=== PATIENT | male | born 1950 | race Caucasian/White ===

== ENCOUNTER 2020-07-30 11:34 | Outpatient (CLI) | payer MEDICARE | END 2020-07-30 11:35 | disposition critical access hospital (66) | LOC: EMS 11:34 | PROVIDERS: ATTEND Surgery | DX: S79.912A Unspecified injury of left hip, initial encounter (principal); W11.XXXA Fall on and from ladder, initial encounter; Y92.008 Other place in unspecified non-institutional (private) residence as the place of occurrence of the external cause | CPT/HCPCS: A0425; A0427 ==

== ENCOUNTER 2020-07-30 11:58 | Inpatient (IN) | payer MEDICARE ==
[2020-07-30] MEDS ORDERED: HYDROmorphone 1 MG/ML CARPUJECT IVP STA (12:29)
--- NOTE | 2020-07-30 12:33 | ED Physician Documentation ---
History of Present Illness - Stated complaint Stated Complaint: FALL FROM LADDER - Chief complaint Chief Complaint: Trauma Ext - History obtained from History obtained from: Patient, EMS - History of Present Illness Timing: Today Pain level max: 10 Pain level now: 9 - Additonal information Additional information: Patient states he was working on a platform suspended in between 2 ladders when he accidentally stepped backwards and fell off landing on a concrete pad on the left hip. Worse with movement, nothing makes it better. No head, neck, back pain. No loss of consciousness. Does not take any blood thinners. Received morphine with EMS. Review of Systems Ten Systems: 10 systems reviewed and negative Constitutional: denies: Fever, Chills Nose: denies: Rhinorrhea / runny nose, Congestion Throat: denies: Oral lesions / sores Cardiac: denies: Chest pain / pressure Respiratory: denies: Cough GI: denies: Nausea, Vomiting, Diarrhea Skin: denies: Rash Musculoskeletal: denies: Neck pain, Back pain Neurologic: denies: Focal weakness, Numbness, Head injury PD PAST MEDICAL HISTORY - Past Medical History Past Medical History: Yes Cardiovascular: Hypertension, High cholesterol Psych: Depression Musculoskeletal: Osteoarthritis - Past Surgical History Past Surgical History: No HEENT: Tonsil/Adenoidectomy - Present Medications Home Medications: Ambulatory Orders Medication Instructions Recorded Confirmed Fluoxetine HCl [Prozac] 40 mg PO DAILY 07/30/20 07/30/20 Gabapentin [Neurontin] 300 mg PO QID 07/30/20 07/30/20 Hydrochlorothiazide 12.5 mg PO DAILY 07/30/20 07/30/20 Lisinopril [Zestril] 40 mg PO DAILY 07/30/20 07/30/20 Tamsulosin [Flomax] 0.4 mg PO DAILY 07/30/20 07/30/20 buPROPion HCL [Bupropion HCl] 75 mg PO BID 07/30/20 07/30/20 - Allergies Allergies/Adverse Reactions: Allergies Allergy/AdvReac Type Severity Reaction Status Date / Time clindamycin Allergy Unknown Verified 07/30/20 12:18 - Social History Does the pt smoke?: No Smoking Status: Never smoker Does the pt drink ETOH?: No Does the pt have substance abuse?: No - Immunizations Immunizations are current?: Yes - POLST Patient has POLST: No PD ED PE NORMAL - Vitals Vital signs reviewed: Yes - General General: Alert and oriented X 3, No acute distress, Well developed/nourished - HEENT HEENT: Atraumatic, PERRL, Moist mucous membranes, Pharynx benign - Neck Neck: Supple, no meningeal sign, No bony TTP - Cardiac Cardiac: RRR, Strong equal pulses - Respiratory Respiratory: No respiratory distress, Clear bilaterally - Abdomen Abdomen: Soft, Non tender, Non distended - Back Back: No spinal TTP (no Step-off or deformity) - Derm Derm: Warm and dry - Extremities Extremities: Other (Normal examination of the bilateral upper extremities and right lower extremity. Limited range of motion of the left hip with external rotation and shortening. 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5 H RBC 4.73 Hgb 14.7 Hct 42.7 MCV 90.3 MCH 31.1 H MCHC 34.4 RDW 13.2 Plt Count 219 MPV 10.0 Neut # (Auto) 9.1 H Lymph # (Auto) 1.3 L [place] # (Auto) 0.8 Eos # (Auto) 0.1 Baso # (Auto) 0.1 Absolute Nucleated RBC 0.00 Nucleated RBC % 0.0 Sodium 137 Potassium 3.1 L Chloride 103 Carbon Dioxide 23 Anion Gap 11.0 BUN 18 Creatinine 1.0 Estimated GFR (MDRD) 74 L Glucose 142 H Calcium 8.8 Total Bilirubin 0.7 AST 25 ALT 24 Alkaline Phosphatase 39 L Total Protein 6.9 Albumin 4.0 Globulin 2.9 Albumin/Globulin Ratio 1.4 Lipase 29 Blood Type A POSITIVE Antibody Screen NEGATIVE - Rads (name of study) L hip xray Radiology: Prelim report reviewed, EMP read contemporaneously, See rad report (Comminuted, moderately displaced fracture of the left femoral neck, including avulsion of the lesser trochanter.) cxr Radiology: Prelim report reviewed, EMP read contemporaneously, See rad report (no acute disease) PD MEDICAL DECISION MAKING - ED course Complexity details: reviewed results, re-evaluated patient, considered differential, d/w patient, d/w beverage sales consultant ED course: 70-year-old male presents the emergency department after a fall today. He sustained a left hip fracture. Discussed the case with orthopedic surgeon, Dr. Donato who will plan to take to the operating room tomorrow. Discussed the case with Dr. France, hospitalist who accepts for admission. This document was made in part using voice recognition software. While efforts are made to proofread this document, sound alike and grammatical errors may occur. Departure - Departure Disposition: [facility] DC/Xfer Clinical Impression: Fracture of left hip Qualifiers: Encounter type: initial encounter Fracture type: closed Qualified Code(s): S72.002A - Fracture of unspecified part of neck of left femur, initial encounter for closed fracture Condition: Good Discharge Date/Time: 07/30/20 15:10
[2020-07-30 12:50] LABS: BASOPHILS # (AUTO) 0.1 10^3/uL (0.0-0.1); BASOPHILS % (AUTO) 0.6 %; EOSINOPHILS # (AUTO) 0.1 10^3/uL (0.0-0.7); EOSINOPHILS % (AUTO) 0.9 %; HGB - HEMOGLOBIN 14.7 g/dL (14.0-18.0); LYMPHOCYTES # (AUTO) 1.3 10^3/uL (1.5-3.5); LYMPHOCYTES % (AUTO) 11.5 %; MEAN CORPUSCULAR HEMOGLOBIN 31.1 pg (27.0-31.0); MEAN CORPUSCULAR HGB CONC 34.4 g/dL (32.0-36.0); MEAN CORPUSCULAR VOLUME 90.3 fL (80.0-94.0); MONOCYTES # (AUTO) 0.8 10^3/uL (0.0-1.0); MONOCYTES % (AUTO) 6.5 %; NEUTROPHILS # (AUTO) 9.1 10^3/uL (1.5-6.6); NEUTROPHILS % (AUTO) 79.5 %; PLT - PLATELET COUNT 219 10^3/uL (130-450); RED BLOOD COUNT 4.73 10^6/uL (4.70-6.10); RED CELL DISTRIBUTION WIDTH 13.2 % (12.0-15.0); WHITE BLOOD COUNT 11.5 x10^3/uL (4.8-10.8)
[2020-07-30 12:59] LABS: ALBUMIN/GLOBULIN RATIO 1.4 (1.0-2.2); BILIRUBIN,TOTAL 0.7 mg/dL (0.2-1.0); CALCIUM 8.8 mg/dL (8.5-10.3); TOTAL PROTEIN 6.9 g/dL (6.7-8.2)
--- NOTE | 2020-07-30 13:05 | XRAY Report ---
PROCEDURE: Hip w/Pelvis 2-3V LT INDICATIONS: fall off ladder, hip pain TECHNIQUE: AP pelvis with lateral view(s) of the left hip(s). COMPARISON: None. FINDINGS: Bones: There is a comminuted, moderately displaced fracture involving the left femoral neck, with avu lsion of the lesser trochanter. No dislocation is seen. Soft tissues: The visualized bowel gas pattern is normal. No suspicious soft tissue calcifications. IMPRESSION: Comminuted, moderately displaced fracture of the left femoral neck, including avulsion o f the lesser trochanter. Reviewed by: Ubaldo Velasquez MD on 07/30/2020 12:04 PM SWETA Approved by: Ubaldo Velasquez MD on 07/30/2020 12:04 PM SWETA Station ID: [id number]
[2020-07-30] MEDS ORDERED: ceFAZolin 2 GM in SODIUM CHLORIDE 0.9% 100ML 100 ML IV ONE (13:13)
--- NOTE | 2020-07-30 13:36 | XRAY Report ---
PROCEDURE: Chest 1 View X-Ray INDICATIONS: chest pain TECHNIQUE: One view of the chest was acquired. COMPARISON: None FINDINGS: Surgical changes and devices: None. Lungs and pleura: On the supine study, no large pneumothorax or large pleural effusions can be seen. No focal infiltrates are detected. Mediastinum: The aorta is prominent and tortuous. The cardiac contours are within normal limits. Bones and chest wall: No suspicious bony lesions. Age-appropriate degenerative changes are seen. Overlying soft tissues appear unremarkable. IMPRESSION: No acute abnormality is seen on this supine portable chest study. Reviewed by: Ubaldo Velasquez MD on 07/30/2020 12:34 PM SWETA Approved by: Ubaldo Velasquez MD on 07/30/2020 12:34 PM SWETA Station ID: [id number]
[2020-07-30] MEDS ORDERED: ONDANSETRON 4 MG/2 ML VIAL IVP PRN (15:21)
[2020-07-30] MEDS ORDERED: ACETAMINOPHEN 325 MG TABLET PO PRN (15:21)
[2020-07-30] MEDS: HYDROmorphone 2 MG/ML VIAL IVP PRN ×3 (15:25→23:12)
--- NOTE | 2020-07-30 15:53 | PHARMACY PROGRESS NOTE ---
- Best Possible Medication History Admit Date and Time: 07/30/20 1441 Processed by: Pharmacy Medication History completed: Yes Patient Interview: Completed Secondary Source(s): Insurance records As the person ultimately responsible for medication therapy, providers are able to order a medication from an existing home medication list in [facility] via the "Reconcile Routine" prior to Confirmation of that medication by product support engineer. Such practice is discouraged except when the physician, in their clinical judgment, deems that a medical need exists for a medication without regard to previous use.
[2020-07-30] MEDS ORDERED: LIDOCAINE 2% URO-JET 5 ML SYRINGE UR ONE (17:15)
[2020-07-30] MEDS: TAMSULOSIN 0.4 MG CAPSULE PO SCH (17:44)
[2020-07-30] MEDS: SODIUM CHLORIDE FLUSH 0.9% 10 ML SYRINGE IVP SCH (17:44)
[2020-07-30] MEDS: GABAPENTIN 300 MG CAPSULE PO SCH ×2 (17:44→21:21)
[2020-07-30] MEDS: SODIUM CHLORIDE FLUSH 0.9% 10 ML SYRINGE IVP PRN ×2 (18:28→21:20)
[2020-07-30] MEDS: lisinopriL 20 MG TABLET PO SCH (18:50)
[2020-07-30] MEDS ORDERED: BUPROPION HCL 75 MG PO SCH (21:00)
[2020-07-30] MEDS ORDERED: SODIUM CHLORIDE 0.9% 500 ML IV PRN (21:08)
[2020-07-30] MEDS: POTASSIUM CHLOR 10 MEQ/100 ML 10 MEQ/100 ML BAG IV SCH ×3 (21:20→23:39)
[2020-07-30] MEDS: HYDROcod/ACETAM 5/325 MG TABLET PO PRN (21:21)
[2020-07-30] MEDS: FAMOTIDINE 20 MG TABLET PO SCH (21:21)
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
[2020-07-31] MEDS ORDERED: ceFAZolin 2 GM in SODIUM CHLORIDE 0.9% 100ML 100 ML IV SCH ×2
[2020-07-31] MEDS: POTASSIUM CHLOR 10 MEQ/100 ML 10 MEQ/100 ML BAG IV SCH (00:24)
[2020-07-31] MEDS: LACTATED RINGERS 1,000 ML IV SCH ×2 (01:27→21:40)
[2020-07-31] MEDS: SODIUM CHLORIDE FLUSH 0.9% 10 ML SYRINGE IVP SCH ×3 (03:06→17:25)
[2020-07-31] MEDS: HYDROmorphone 2 MG/ML VIAL IVP PRN ×5 (03:56→19:54)
[2020-07-31 05:09] LABS: CALCIUM 8.8 mg/dL (8.5-10.3); CREATININE 0.6 mg/dL (0.6-1.2); MAGNESIUM 2.2 mg/dL (1.7-2.8)
[2020-07-31 05:18] LABS: BASOPHILS # (AUTO) 0.1 10^3/uL (0.0-0.1); BASOPHILS % (AUTO) 0.3 %; EOSINOPHILS # (AUTO) 0.1 10^3/uL (0.0-0.7); EOSINOPHILS % (AUTO) 0.4 %; HGB - HEMOGLOBIN 14.3 g/dL (14.0-18.0); LYMPHOCYTES # (AUTO) 1.4 10^3/uL (1.5-3.5); LYMPHOCYTES % (AUTO) 9.4 %; MEAN CORPUSCULAR HEMOGLOBIN 31.2 pg (27.0-31.0); MEAN CORPUSCULAR VOLUME 91.7 fL (80.0-94.0); MEAN PLATELET VOLUME 10.4 fL (7.4-11.4); MONOCYTES # (AUTO) 1.4 10^3/uL (0.0-1.0); MONOCYTES % (AUTO) 9.7 %; NEUTROPHILS # (AUTO) 11.6 10^3/uL (1.5-6.6); NEUTROPHILS % (AUTO) 79.4 %; PLT - PLATELET COUNT 219 10^3/uL (130-450); RED BLOOD COUNT 4.58 10^6/uL (4.70-6.10); RED CELL DISTRIBUTION WIDTH 13.4 % (12.0-15.0); WHITE BLOOD COUNT 14.7 x10^3/uL (4.8-10.8)
[2020-07-31] MEDS: hydrALAZINE INJ 20 MG/ML VIAL IVP PRN (05:53)
[2020-07-31] MEDS: TAMSULOSIN 0.4 MG CAPSULE PO SCH (08:47)
[2020-07-31] MEDS: FLUoxetine 10 MG CAPSULE PO SCH (08:47)
[2020-07-31] MEDS: GABAPENTIN 300 MG CAPSULE PO SCH ×4 (08:48→21:38)
[2020-07-31] MEDS: lisinopriL 20 MG TABLET PO SCH (08:52)
[2020-07-31] MEDS: FAMOTIDINE 20 MG TABLET PO SCH ×2 (08:52→21:25)
[2020-07-31] MEDS ORDERED: lisinopriL 20 MG TABLET PO SCH (09:00)
[2020-07-31] MEDS: BUPROPION HCL 75 MG PO SCH ×2 (09:12→21:30)
--- NOTE | 2020-07-31 09:22 | PROVIDER PROGRESS NOTE ---
Subjective - Prog Note Date Prog Note Date: 07/31/20 Prog Note Time: 09:20 - Subjective Pt reports feeling: Improved, No change (Usual pain. No distal weakn ess/numbness) Objective - Vital Signs/Intake & Output Vital Signs: Vital Signs x48h Pulse BP BP 07/31/20 06:57 68 168/92 H 07/31/20 06:44 74 168/91 H 07/31/20 06:23 168/91 H 07/31/20 06:18 168/91 H 07/31/20 06:12 183/90 H 07/31/20 06:05 191/94 H 07/31/20 05:53 180/92 H 07/31/20 05:25 180/92 H Intake & Output: Intake & Output 07/28/20 07/29/20 07/30/20 07/31/20 23:59 23:59 23:59 23:59 Intake Total 200 1042 Output Total 550 300 Balance -350 742 - Lab Results Fish Bones: 07/31/20 04:35 07/31/20 04:35 Other Labs: Lab Results x24hrs 07/31/20 07/31/20 07/31/20 Range/Units 04:35 04:35 04:35 WBC 14.7 H (4.8-10.8) x10^3/uL RBC 4.58 L (4.70-6.10) 10^6/uL Hgb 14.3 (14.0-18.0) g/dL Hct 42.0 (42.0-52.0) % MCV 91.7 (80.0-94.0) fL MCH 31.2 H (27.0-31.0) pg MCHC 34.0 (32.0-36.0) g/dL RDW 13.4 (12.0-15.0) % Plt Count 219 (130-450) 10^3/uL MPV 10.4 (7.4-11.4) fL Neut # (Auto) 11.6 H (1.5-6.6) 10^3/uL Lymph # (Auto) 1.4 L (1.5-3.5) 10^3/uL [place] # (Auto) 1.4 H (0.0-1.0) 10^3/uL Eos # (Auto) 0.1 (0.0-0.7) 10^3/uL Baso # (Auto) 0.1 (0.0-0.1) 10^3/uL Absolute Nucleated RBC 0.00 x10^3/uL Nucleated RBC % 0.0 /100WBC Sodium 140 (135-145) mmol/L Potassium 3.6 (3.5-5.0) mmol/L Chloride 106 (101-111) mmol/L Carbon Dioxide 24 (21-32) mmol/L Anion Gap 10.0 (6-13) BUN 16 (6-20) mg/dL Creatinine 0.6 (0.6-1.2) mg/dL Estimated GFR (MDRD) 134 (>89) Glucose 128 H (70-100) mg/dL Calcium 8.8 (8.5-10.3) mg/dL Magnesium 2.2 (1.7-2.8) mg/dL Total Bilirubin (0.2-1.0) mg/dL AST (10-42) IU/L ALT (10-60) IU/L Alkaline Phosphatase (42-121) IU/L Total Protein (6.7-8.2) g/dL Albumin (3.2-5.5) g/dL Globulin (2.1-4.2) g/dL Albumin/Globulin Ratio (1.0-2.2) Lipase (22-51) U/L Blood Type Blood Type Recheck A POSITIVE Antibody Screen 07/30/20 07/30/20 07/30/20 Range/Units 13:47 12:40 12:40 WBC 11.5 H (4.8-10.8) x10^3/uL RBC 4.73 (4.70-6.10) 10^6/uL Hgb 14.7 (14.0-18.0) g/dL Hct 42.7 (42.0-52.0) % MCV 90.3 (80.0-94.0) fL MCH 31.1 H (27.0-31.0) pg MCHC 34.4 (32.0-36.0) g/dL RDW 13.2 (12.0-15.0) % Plt Count 219 (130-450) 10^3/uL MPV 10.0 (7.4-11.4) fL Neut # (Auto) 9.1 H (1.5-6.6) 10^3/uL Lymph # (Auto) 1.3 L (1.5-3.5) 10^3/uL [place] # (Auto) 0.8 (0.0-1.0) 10^3/uL Eos # (Auto) 0.1 (0.0-0.7) 10^3/uL Baso # (Auto) 0.1 (0.0-0.1) 10^3/uL Absolute Nucleated RBC 0.00 x10^3/uL Nucleated RBC % 0.0 /100WBC Sodium 137 (135-145) mmol/L Potassium 3.1 L (3.5-5.0) mmol/L Chloride 103 (101-111) mmol/L Carbon Dioxide 23 (21-32) mmol/L Anion Gap 11.0 (6-13) BUN 18 (6-20) mg/dL Creatinine 1.0 (0.6-1.2) mg/dL Estimated GFR (MDRD) 74 L (>89) Glucose 142 H (70-100) mg/dL Calcium 8.8 (8.5-10.3) mg/dL Magnesium (1.7-2.8) mg/dL Total Bilirubin 0.7 (0.2-1.0) mg/dL AST 25 (10-42) IU/L ALT 24 (10-60) IU/L Alkaline Phosphatase 39 L (42-121) IU/L Total Protein 6.9 (6.7-8.2) g/dL Albumin 4.0 (3.2-5.5) g/dL Globulin 2.9 (2.1-4.2) g/dL Albumin/Globulin Ratio 1.4 (1.0-2.2) Lipase 29 (22-51) U/L Blood Type A POSITIVE Blood Type Recheck Antibody Screen NEGATIVE - Diagnostic Imaging Diagnostic Imaging Comments: XR show comminuted left IT hip fracture - Other Results/Comments Other Results/Comments: EXAM: Painful hip ROM. Moves toes well. Sensation intact Good cap filling Assessment/Plan - Problem List (1) Fracture of left hip Impression: Stable PLAN: To OR for surgical fixation of hip fracture. Risk and benefits of surgery explained. Questions answered. Leg marked. Qualifiers: Encounter type: initial encounter Fracture type: closed Qualified Code(s): S72.002A - Fracture of unspecified part of neck of left femur, initial encounter for closed fracture
--- NOTE | 2020-07-31 10:43 | ANESTHESIA ---
Pre-Anesthesia VS, & Labs - Diagnosis left hip fracture - Procedure Left hip nailing Vital Signs: Temp Pulse Resp BP Pulse Ox 36.4 C L 68 16 168/92 H 99 07/31/20 01:15 07/31/20 06:57 07/31/20 01:15 07/31/20 06:57 07/31/20 01:15 Height: 5 ft 9 in Weight (kg): 83.9 kg Body Mass Index: 27.3 BMI Classification: Overweight - NPO >8 hours - Lab Results Current Lab Results: Laboratory Tests 07/31/20 04:35: Sodium 140, Potassium 3.6, Chloride 106, Carbon Dioxide 24, Anion Gap 10.0, BUN 16, Creatinine 0.6, Estimated GFR (MDRD) 134, Glucose 128 H, Calcium 8.8, Magnesium 2.2 07/31/20 04:35: WBC 14.7 H, RBC 4.58 L, Hgb 14.3, Hct 42.0, MCV 91.7, MCH 31.2 H , MCHC 34.0, RDW 13.4, Plt Count 219, MPV 10.4, Neut # (Auto) 11.6 H, Lymph # (Auto) 1.4 L, [place] # (Auto) 1.4 H, Eos # (Auto) 0.1, Baso # (Auto) 0.1, Absolute Nucleated RBC 0.00, Nucleated RBC % 0.0 07/31/20 04:35: Blood Type Recheck A POSITIVE 07/30/20 13:47: Blood Type A POSITIVE, Antibody Screen NEGATIVE 07/30/20 12:40: Sodium 137, Potassium 3.1 L, Chloride 103, Carbon Dioxide 23, Anion Gap 11.0, BUN 18, Creatinine 1.0, Estimated GFR (MDRD) 74 L, Glucose 142 H , Calcium 8.8, Total Bilirubin 0.7, AST 25, ALT 24, Alkaline Phosphatase 39 L, Total Protein 6.9, Albumin 4.0, Globulin 2.9, Albumin/Globulin Ratio 1.4, Lipase 29 07/30/20 12:40: WBC 11.5 H, RBC 4.73, Hgb 14.7, Hct 42.7, MCV 90.3, MCH 31.1 H, MCHC 34.4, RDW 13.2, Plt Count 219, MPV 10.0, Neut # (Auto) 9.1 H, Lymph # (Auto) 1.3 L, [place] # (Auto) 0.8, Eos # (Auto) 0.1, Baso # (Auto) 0.1, Absolute Nucleated RBC 0.00, Nucleated RBC % 0.0 Fish Bones: 07/31/20 04:35 07/31/20 04:35 Home Medications and Allergies Home Medications: Ambulatory Orders Fluoxetine HCl [Prozac] 40 mg PO DAILY 07/30/20 Gabapentin [Neurontin] 300 mg PO QID 07/30/20 Hydrochlorothiazide 12.5 mg PO DAILY 07/30/20 Lisinopril [Zestril] 40 mg PO DAILY 07/30/20 Tamsulosin [Flomax] 0.4 mg PO DAILY 07/30/20 buPROPion HCL [Bupropion HCl] 75 mg PO BID 07/30/20 Active Medications Acetaminophen (Tylenol) 650 mg PO Q4HR PRN PRN Reason: Pain or Fever > 38C (100.4F) Hydrocodone Bitart/Acetaminophen ([place] 5/325) 1 tab PO Q4HR PRN PRN Reason: Pain 5 to 7 Last Admin: 07/30/20 21:21 Dose: 1 tab Documented by: Famotidine (Pepcid) 20 mg PO BID [facility] Last Admin: 07/31/20 08:52 Dose: 20 mg Documented by: Fluoxetine HCl (Prozac) 40 mg PO DAILY [facility] Last Admin: 07/31/20 08:47 Dose: 40 mg Documented by: Gabapentin (Neurontin) 300 mg PO QID [facility] Last Admin: 07/31/20 08:48 Dose: 300 mg Documented by: Hydralazine HCl (Apresoline Inj) 10 mg IVP Q4H PRN PRN Reason: PER PHYSICIAN ORDER Last Admin: 07/31/20 05:53 Dose: 10 mg Documented by: Hydromorphone HCl (Dilaudid (Vial)) 2 mg IVP Q2H PRN PRN Reason: PAIN Last Admin: 07/31/20 10:10 Dose: 2 mg Documented by: Cefazolin Sodium 2 gm/ Sodium (Chloride) 100 mls @ 200 mls/hr IV ONCE [facility] Stop: 07/31/20 23:00 Lactated Ringer's (Lr) 1,000 mls @ 100 mls/hr IV .Q10H [facility] Last Admin: 07/31/20 01:27 Dose: 100 mls/hr Documented by: Sodium Chloride (Normal Saline 0.9%) 500 mls @ 0 mls/hr IV Q24H PRN PRN Reason: TKO RATE Last Admin: 07/30/20 21:21 Dose: 30 mls/hr Documented by: Lisinopril (Zestril) 40 mg PO DAILY [facility] Last Admin: 07/31/20 08:52 Dose: 40 mg Documented by: Patient Own Med ( Bupropion Hcl [ Bupropion Hcl] 75 Mg ) 1 each PO BID [facility] Last Admin: 07/31/20 09:12 Dose: 1 each Documented by: Sodium Chloride (Normal Saline Flush 0.9%) 10 ml IVP PRN PRN PRN Reason: NEEDED PER PROVIDER ORDERS Last Admin: 07/30/20 21:20 Dose: 10 ml Documented by: Sodium Chloride (Normal Saline Flush 0.9%) 10 ml IVP 0100,0900,1700 [facility] Last Admin: 07/31/20 08:07 Dose: 10 ml Documented by: Tamsulosin HCl (Flomax) 0.4 mg PO DAILY [facility] Last Admin: 07/31/20 08:47 Dose: 0.4 mg Documented by: Fluoxetine HCl [Prozac] 40 mg PO DAILY 07/30/20 Gabapentin [Neurontin] 300 mg PO QID 07/30/20 Hydrochlorothiazide 12.5 mg PO DAILY 07/30/20 Lisinopril [Zestril] 40 mg PO DAILY 07/30/20 Tamsulosin [Flomax] 0.4 mg PO DAILY 07/30/20 buPROPion HCL [Bupropion HCl] 75 mg PO BID 07/30/20 Allergies/Adverse Reactions: Allergies Allergy/AdvReac Type Severity Reaction Status Date / Time clindamycin Allergy Unknown Verified 07/30/20 12:18 Anes History & Medical History - Anesthetic History Anesthesia Complications: reports: No previous complications - Medical History Cardiovascular: reports: Hypertension, High cholesterol Pulmonary: reports: None Gastrointestinal: reports: GERD Urinary: reports: Benign prostate hypertrophy Neuro: reports: None Musculoskeletal: reports: Osteoarthritis, Other (post herpactic neuralgia) Endocrine/Autoimmune: reports: None Blood Disorders: reports: None Skin: reports: None Smoking Status: Never smoker Psychosocial: reports: No issues indicated History of Cancer?: No - Surgical History Eyes Ears Nose Throat (EENT): Tonsil/Adenoidectomy, Other (Jaw surgery) Exam General: Alert, Oriented x3, Cooperative, No acute distress Dental: WNL, Other (hole in mandible) Mouth Openin Fingerbreadth Neck Mobility: Normal Mallampati classification: II Thyromental Distance: 4-6 cm Respiratory: Lungs clear, Normal breath sounds, No respiratory distress, No accessory muscle use Cardiovascular: Regular rate, Normal S1, Normal S2, No murmurs Mental/Cognitive Status: Alert/Oriented X3, Normal for patient Plan Anesthesia Type: General, Fascia Iliaca Block (Left) Consent for Procedure(s) Verified and Reviewed: Yes Code Status: Attempt Resuscitation ASA classification: 2-Mild systemic disease Is this case an emergency?: No
[2020-07-31] MEDS ORDERED: ROPIVACAINE 0.5% PF 20 ML AMPULE ONE (11:02)
--- NOTE | 2020-07-31 11:27 | CONSULTATION NOTE ---
DATE OF SERVICE: 07/30/2020 Physician: Adolph Donato MD EMERGENCY DEPARTMENT CONSULTATION NOTE REFERRING PHYSICIAN: Dr. Trip Mandel of the emergency room department. CHIEF COMPLAINT: "I hurt my left side." HISTORY OF PRESENT ILLNESS: Patient is a 70-year-old male who apparently fell about 3 feet off of a ladder platform on the day of his admission, landing on his left side. Noted immediate pain and deformity to the left leg. He was unable to stand or weight bear without pain. Patient denied a loss of consciousness or other injuries. No distal weakness or numbness noted. The patient was taken by ambulance to the emergency room here at [facility] where his ER evaluation, including x-rays, revealed a somewhat comminuted left intertrochanteric hip fracture. No other injuries are noted. Patient had no prior hip fractures. EXAMINATION Vital signs were stable. Patient's left hip showed some minimal bruising present. Had tenderness over the lateral aspect of the left hip. Painful left hip range of motion noted. Patient moves his toes satisfactory. Sensation intact. Good capillary filling noted. X-rays showed a comminuted, angulated left intertrochanteric hip fracture with the lesser trochanter fractured off. ASSESSMENT 1. Closed, angulated left intertrochanteric hip fracture. 2. History of hypertension. PLAN: Patient will be admitted to the hospital. Apparently ate about 2 hours before his admission in the early afternoon on Saturday. We will plan then on proceeding with surgical intervention for surgical fixation of his left hip fracture in the morning. The risks and benefits of surgery were explained. Questions were answered. He is aware of possible complications including anesthesia risks, infection, nerve damage, malunion, nonunion, blood clots, etc. After his questions were answered, he wished to proceed with surgery as indicated. The leg will be marked. Consent signed. TD: 07/30/2020 13:31 Revised 08/03/2020 prieto Orig. signed 07/31/20@1354 [email or web address]
[2020-07-31] MEDS ORDERED: MORPHINE 2 MG/ML CARPUJECT IVP PRN ×2 (12:28→14:00)
[2020-07-31] MEDS ORDERED: ATROPINE ABBOJECT 1 MG/10 ML SYRINGE IVP PRN (12:28)
[2020-07-31] MEDS ORDERED: NALOXONE 0.4 MG/ML VIAL IVP PRN (12:28)
[2020-07-31] MEDS ORDERED: HYDROmorphone 0.5 MG/0.5 ML SYRINGE IVP PRN (12:28)
[2020-07-31] MEDS ORDERED: ACETAMINOPHEN 1,000 MG/100 ML 100 ML IV ONE ×2 (12:28→14:31)
[2020-07-31] MEDS ORDERED: PROMETHAZINE INJ 6.25 MG in SODIUM CHLORIDE 0.9% 50 ML IV PRN (12:29)
[2020-07-31] MEDS ORDERED: LACTATED RINGERS 1,000 ML IV SCH (13:00)
[2020-07-31] MEDS ORDERED: LACTATED RINGERS 1,000 ML IV ONE (13:51)
--- NOTE | 2020-07-31 13:57 | OPERATIVE REPORT ---
Operative Report - General Admit Date: 07/30/20 Procedure Date: 07/31/20 Planned Procedure: Long interTan nailing of left hip fracture Pre-Op Diagnosis: Closed, angulated left hip fracture Procedure Performed: Closed reduction and long interTan nailing of left hip fracture Post Op Diagnosis: Same - Procedure Note Primary Surgeon: Suzanna Donato MD Anesthesia Provider: Janes Mobley CRNA Anesthesia Technique: General ET tube, Regional block IV Fluids (mL): 1,000 Estimated Blood Loss (mL): 200 Complications: None
[2020-07-31] MEDS ORDERED: SODIUM CHLORIDE FLUSH 0.9% 10 ML SYRINGE IVP PRN (14:00)
[2020-07-31] MEDS ORDERED: PROCHLORPERAZINE 10 MG/2 ML VIAL IVP PRN (14:00)
[2020-07-31] MEDS ORDERED: ONDANSETRON 4 MG/2 ML VIAL IVP PRN (14:00)
--- NOTE | 2020-07-31 14:02 | XRAY Report ---
PROCEDURE: OR C-Arm Procedure INDICATIONS: SURGERY TECHNIQUE: Intraoperative AP and lateral views of the femur were acquired. COMPARISON: None. FINDINGS: Postsurgical changes compatible with ORIF of left intertrochanteric/subtrochanteric femur fracture no jordan. Intramedullary marisela with proximal dynamic compression screw and distal interlocking screw noted. There is anatomic alignment of fracture following ORIF. IMPRESSION: Intraoperative images demonstrate expected postsurgical change from ORIF of proximal left femur fract ure. Reviewed by: Adamaris Beal MD, PhD on 07/31/2020 2:01 PM PDT Approved by: Adamaris Beal MD, PhD on 07/31/2020 2:01 PM PDT Station ID: [id number]
[2020-07-31] MEDS: fentaNYL 100 MCG/2 ML VIAL IVP PRN ×2 (14:40→14:47)
[2020-07-31] MEDS ORDERED: fentaNYL 100 MCG/2 ML VIAL ONE (14:44)
--- NOTE | 2020-07-31 14:59 | ANESTHESIA POST OP EVALUATION ---
Anesthesia Post Eval - Post Anesthesia Eval Vitals: Last Vital Signs Temp 36.9 C 07/31/20 13:51 Pulse 86 07/31/20 14:54 Resp 16 07/31/20 14:54 BP 153/92 H 07/31/20 14:54 Pulse Ox 97 07/31/20 14:54 CV Function Including HR & BP: positive: Stable Pain Control: positive: Satisfactory Nausea & Vomiting: positive: Negative Mental Status: positive: Baseline Respiratory Status: Airway Patent Hydration Status: Satisfactory Anesthesia Complications: positive: None
--- NOTE | 2020-07-31 15:19 | OPERATIVE REPORT ---
DATE OF SERVICE: 07/31/2020 Physician: Adolph Donato MD PREOPERATIVE DIAGNOSIS: Closed, angulated left intertrochanteric hip fracture. POSTOPERATIVE DIAGNOSIS: Closed, angulated left intertrochanteric hip fracture. PROCEDURE PERFORMED: Closed reduction and long INTERTAN nailing of left hip fracture. SURGEON: Adolph Donato MD ANESTHESIA: Peripheral nerve block and general anesthetic. DESCRIPTION OF PROCEDURE: Patient was taken to the operating room on the afternoon of 07/31/2020 whe re he was placed under a regional nerve block, which was successful. He was then placed under genera l anesthetic by the nurse weigher production. We then positioned him from his bed onto the fracture table i n supine position. The right lower extremity was then flexed and widely abducted at the hip and held with a well leg powers. We then placed the fractured left lower extremity into axial traction with the leg internally rotated approximately 20 degrees. Fluoroscopic views in AP and lateral projection showed the fracture to be essentially out to length and in good alignment. We then prepped and drap ed, the lateral aspect of the hip down to the knee in the usual fashion for our procedure. Making an oblique skin incision proximal to the tip of the greater trochanter, we dissected down to t he tip of the greater trochanter. This is where we placed a threaded-tip guidewire from the nail set . Fluoroscopic views showed that we were at the tip of the greater trochanter. We then advanced thi s threaded guide pin through the greater trochanter into the proximal femur. Fluoroscopic view showe d this to be in a good position both in AP and lateral projections. We then proceeded to ream the pr oximal femur using the 16 mm channel reamer. At this point, we then removed the guide pin and reamer . We then advanced a ball-tip guide down the prepared proximal femoral channel down the femoral shaf t toward the knee. We then repositioned the channel reamer over our ball-tip guide and proceeded to ream further just beyond the tip of the lesser trochanter with our reamer. Next, we removed the ream er and then proceeded to sequentially ream the femoral canal starting with a 9 mm in-cutting flexible reamer. We advanced in 1 mm increments up to 12 mm. At this point, we started hearing some chatter from the intramedullary reaming. We then went to the 12.5 and finally the 13 mm flexible reamer in preparing the femoral canal. At this point, we then measured the length of our nail. Confirming meaghan t the tip of the ball-tipped guide was in the supracondylar region of the distal femur and that the m easuring device was approximately at the tip of the greater trochanter, we determined that a 42 cm le ngth nail would be utilized. Since we had reamed to 13 mm, an 11.5 mm diameter left-sided INTERTAN n ail with 125-degree angle proximal hole would be utilized. This implant was then folded onto our ins ertion and alignment apparatus. We then proceeded to place this nail in the prepared femoral shaft. The depth of insertion was guided with our fluoroscopic view until the proximal hole of our nail wit h aligned with the central axis of the femoral neck and head. Once this was in proper position, we deangelo richardson made a skin incision over the lateral proximal thigh and inserted the oval drill sleeve through t he distal hole in our alignment jig. This was then advanced to the lateral femoral cortex. Next, we inserted the wright-shaped pin guide in our drill sleeve. We then proceeded to use power to advance a threaded-tip guidewire through our wire guide, advancing this through the proximal femur and femoral neck and femoral head. After minor adjustments, we accepted the position of our guide pin, which wa s nearly central in AP and lateral projections under fluoroscopic views of the femoral neck and head, and the depth had been to within about 2 mm from the subchondral bone of the femoral head. Direct m easuring guide was then utilized and we figured that 115 mm subtrochanteric hip lag screw be utilized . Removing our pin guide out of our sleeve, we then used the cannulated reamer to ream the proximal femur, femoral neck and femoral head to within a few millimeters of the subchondral bone. After the reamer was removed, we then proceeded to place the selected subtrochanteric hip lag screw, inserting this manually. This was advanced until the screw was within about 3 mm of the subchondral bone. We got good bony purchase as we advanced this screw. Using the compression device on our inserted nail, we were able to impact the fracture approximately 2-3 mm. Satisfied with the compression, we then p roceeded to lock the proximal set screw in our nail, advancing it until the screw was tight and then backing off 90 degrees. We then proceeded to remove the insertion device for a hip lag screw, as wel l as the alignment jig from the nail. We then directed our attention distally to put the distal locking screw in place. We first abducted the leg approximately 30 degrees and locked the table. We then repositioned the C-arm fluoroscopic m achine to allow us to get a good lateral of the distal femur. The adjustment of the C-arm was then d one, as well as minor adjustments of the leg position until the static hole in the distal end of our nail was a round shape. Making skin incision overlying this hole, as well as placing the tip of our drill centered over this static hole of our distal nail, we then proceeded to drill the lateral and f emoral and medial femoral portion of the cortex with our drill through the static hole in our nail. We then replaced the drill with the selected 5 mm distal locking screw. The length was determined fr om our direct measurement off of our drill. We ended up using a 45 mm length screw. Manually, we the n proceeded to replace the drill bit with the selected distal locking screw. Fluoroscopic views in A P and lateral projections were obtained until we were satisfied with the bicortical screw being withi n the distal end of our nail at the static locked hole. Once we were satisfied with this, we got johnathan in and permanent x-rays, AP and lateral, both at the distal femur and at the proximal femur/hip area. Finally, we irrigated the wounds out thoroughly with saline. We then closed the wound in layers us ing a buried simple stitch of 0 Vicryl to close the fascia maureen incision, followed by buried simple s titches of 2-0 Vicryl to close the subcutaneous tissues in the proximal 2 incisions. Last, skin stap les used to approximate the skin edges to all 3 wounds. No local anesthetic was injected, as we got adequate peripheral nerve block preoperatively. The patient was then transferred off the fracture ta ble onto his bed and taken to the recovery room in satisfactory condition. ESTIMATED BLOOD LOSS: 200 mL. REPLACEMENT: 1000 mL crystalloid. TOURNIQUET TIME: None. PLAN: The patient will be advanced in physical therapy, weightbearing as tolerated in his lower extr emity walker ambulating. TD: 07/31/2020 14:17
--- NOTE | 2020-07-31 15:35 | PROVIDER PROGRESS NOTE ---
Assessment/Plan - Problem List (1) Fracture of left hip Qualifiers: Encounter type: subsequent encounter Fracture type: closed Assessment/Plan: Patient had successful hip repair with pinning. Continue with pain medications as needed. Will order scheduled Toradol for several doses and prn narcotics Start with PT tomorrow for rehab (2) Oral ulcer Assessment/Plan: Patient made sure to tell me that he cannot have solid or even soft or pured food since he must be mostly on his back and cannot washout his mouth with water to spit it out. We will order a full liquid diet. Tomorrow when he is OOB, will probably advance to a soft diet so that he can do his oral hygiene/liquid washes after every meal. (3) HTN (hypertension) Assessment/Plan: His home dose of lisinopril has been resumed. IV hydralazine has been ordered PRN for hypertensive urgency. A low-salt diet will be ordered (4) Prolonged QT syndrome Assessment/Plan: He reports this was diagnosed after he had several syncopes. Avoid QT prolonging medication (5) BPH (benign prostatic hyperplasia) Assessment/Plan: Today he had urinary retention, could not urinate supine in bed. Larkin was placed because of the hip fracture and immobility. His BPH meds from home have also been resumed (6) Chronic pain Assessment/Plan: Meds such as gabapentin have all been resumed (7) Anxiety Assessment/Plan: His anxiolytics have all been continued here (8) Hypokalemia Assessment/Plan: This was likely due to use of HCTZ. It was replaced. Follow BMP daily - Current Meds Current Meds: Current Medications Generic Name Dose Route Start Last Admin Trade Name Freq PRN Reason Stop Dose Admin Hydrocodone Bitart/Acetaminophen 1 tab 07/30/20 15:21 07/30/20 21:21 [place] 5/325 PO 1 tab Q4HR PRN Administration Pain 5 to 7 Famotidine 20 mg 07/30/20 21:00 07/31/20 08:52 Pepcid PO 20 mg BID EVIE Administration Fluoxetine HCl 40 mg 07/31/20 09:00 07/31/20 08:47 Prozac PO 40 mg DAILY EVIE Administration Gabapentin 300 mg 07/30/20 18:00 07/31/20 08:48 Neurontin PO 300 mg QID EVIE Administration Hydralazine HCl 10 mg 07/31/20 05:27 07/31/20 05:53 Apresoline Inj IVP 10 mg Q4H PRN Administration PER PHYSICIAN ORDER Hydromorphone HCl 2 mg 07/30/20 15:19 07/31/20 10:10 Dilaudid (Vial) IVP 2 mg Q2H PRN Administration PAIN Lactated Ringer's 1,000 mls @ 100 mls/hr 07/31/20 00:01 07/31/20 11:30 Lr IV Infused .Q10H EVIE Infusion Lisinopril 40 mg 07/30/20 18:26 07/31/20 08:52 Zestril PO 40 mg DAILY EVIE Administration Patient Own Med ( 1 each 07/31/20 06:58 07/31/20 09:12 Bupropion Hcl [ PO 1 each Bupropion Hcl] 75 Mg BID EVIE Administration ) Tamsulosin HCl 0.4 mg 07/30/20 17:13 07/31/20 08:47 Flomax PO 0.4 mg DAILY EVIE Administration - Lab Result Fish Bone Diagrams: 07/31/20 04:35 07/31/20 04:35 - Additional Planning My Orders: My Active Orders 07/30/20 15:19 HYDROmorphone (VIAL) [Dilaudid (Vial)] 2 mg IVP Q2H PRN 07/30/20 15:21 Activity Orders [RC] Q2HR IO [RC] IOSHIFT Initiate Bowel Care Protocol [RC] .protocol Initiate Personal Care Protoco [RC] .protocol Oxygen Therapy [RC] Routine Vital Signs [RC] 0800,1600,0000 HYDROcod/ACETAM 5/325 [[place] 5/325] 1 tab PO Q4HR PRN Code Status [OTHERS] Routine Condition of Patient [OTHERS] Routine DVT Prophylaxis [OTHERS] Routine 07/30/20 15:23 IV Insert [RC] .ONCE SCDs [RC] QSHIFT 07/30/20 15:26 Initiate Line Care Protocol [RC] [facility] Orthopedics Consult [CONS] Routine 07/30/20 17:13 Tamsulosin [Flomax] 0.4 mg PO DAILY 07/30/20 17:15 Larkin Insertion [RC] QSHIFT 07/30/20 18:00 Gabapentin [Neurontin] 300 mg PO QID 07/30/20 18:26 lisinopriL [Zestril] 40 mg PO DAILY 07/30/20 21:00 Famotidine [Pepcid] 20 mg PO BID 07/31/20 00:01 Lactated Ringers [Lr] 1,000 ml IV 100 mls/hr 07/31/20 06:58 Patient Own Med [Patient Own Medication] 1 each PO BID 07/31/20 09:00 FLUoxetine [PROzac] 40 mg PO DAILY 08/01/20 05:00 BMP - BASIC METABOLIC PANEL [CHEM] DAILYLAB CBC - COMP BLD CT W/AUTO DIFF [HEME] DAILYLAB 08/02/20 05:00 BMP - BASIC METABOLIC PANEL [CHEM] DAILYLAB CBC - COMP BLD CT W/AUTO DIFF [HEME] DAILYLAB Subjective - Subjective Patient Reports: Pain (He got on a "block" by DIRECTOR APPOINTMENT but he still has a lot of breakthrough pain, has needed Vicodin and that is not controlling pain, Dilaudid has just been given) Objective Vital Signs: Vital Signs - 24 hr 07/30/20 07/31/20 07/31/20 15:57 01:15 05:25 Temperature 36.4 C L 36.4 C L Heart Rate Heart Rate [ 84 62 Brachial] Respiratory 18 16 Rate Blood Pressure Blood Pressure 150/96 H 171/96 H 180/92 H [Left Brachial artery] O2 Saturation 99 99 07/31/20 07/31/20 07/31/20 05:53 06:05 06:12 Temperature Heart Rate Heart Rate [ Brachial] Respiratory Rate Blood Pressure 180/92 H Blood Pressure 191/94 H 183/90 H [Left Brachial artery] O2 Saturation 07/31/20 07/31/20 07/31/20 06:18 06:23 06:44 Temperature Heart Rate Heart Rate [ 74 Brachial] Respiratory Rate Blood Pressure 168/91 H Blood Pressure 168/91 H 168/91 H [Left Brachial artery] O2 Saturation 07/31/20 07/31/20 07/31/20 06:57 13:51 13:55 Temperature 36.9 C Heart Rate 99 99 Heart Rate [ 68 Brachial] Respiratory 16 15 Rate Blood Pressure 158/89 H 170/96 H Blood Pressure 168/92 H [Left Brachial artery] O2 Saturation 100 99 07/31/20 07/31/20 07/31/20 14:00 14:05 14:10 Temperature Heart Rate 91 92 92 Heart Rate [ Brachial] Respiratory 14 13 10 L Rate Blood Pressure 158/93 H 158/92 H 155/93 H Blood Pressure [Left Brachial artery] O2 Saturation 98 98 98 07/31/20 07/31/20 07/31/20 14:14 14:20 14:25 Temperature Heart Rate 95 88 82 Heart Rate [ Brachial] Respiratory 16 10 L 13 Rate Blood Pressure 143/95 H 137/100 H 149/99 H Blood Pressure [Left Brachial artery] O2 Saturation 96 96 97 07/31/20 07/31/20 07/31/20 14:30 14:35 14:40 Temperature Heart Rate 74 95 76 Heart Rate [ Brachial] Respiratory 11 L 12 12 Rate Blood Pressure 159/99 H 159/89 H 145/97 H Blood Pressure [Left Brachial artery] O2 Saturation 97 94 97 07/31/20 07/31/20 07/31/20 14:44 14:50 14:54 Temperature Heart Rate 80 76 86 Heart Rate [ Brachial] Respiratory 17 13 16 Rate Blood Pressure 152/96 H 158/87 H 153/92 H Blood Pressure [Left Brachial artery] O2 Saturation 97 97 97 Oxygen O2 Source Room air I&O (Last 24 Hrs): Intake and Output Totals x24h 07/29/20 07/30/20 07/31/20 23:59 23:59 23:59 Intake Total 200 2042 Output Total 550 300 Balance -350 1742 General: Alert, Oriented x3 HEENT: Mucous membr. moist/pink Neck: Supple Neuro: Alert, Non Focal Cardiovascular: Regular rate Respiratory: No respiratory distress Abdomen: Soft Extremities: No edema - Results Results: Laboratory Results WBC 14.7 x10^3/uL (4.8-10.8) H 07/31/20 04:35 RBC 4.58 10^6/uL (4.70-6.10) L 07/31/20 04:35 Hgb 14.3 g/dL (14.0-18.0) 07/31/20 04:35 Hct 42.0 % (42.0-52.0) 07/31/20 04:35 MCV 91.7 fL (80.0-94.0) 07/31/20 04:35 MCH 31.2 pg (27.0-31.0) H 07/31/20 04:35 MCHC 34.0 g/dL (32.0-36.0) 07/31/20 04:35 RDW 13.4 % (12.0-15.0) 07/31/20 04:35 Plt Count 219 10^3/uL (130-450) 07/31/20 04:35 MPV 10.4 fL (7.4-11.4) 07/31/20 04:35 Neut # (Auto) 11.6 10^3/uL (1.5-6.6) H 07/31/20 04:35 Lymph # (Auto) 1.4 10^3/uL (1.5-3.5) L 07/31/20 04:35 [place] # (Auto) 1.4 10^3/uL (0.0-1.0) H 07/31/20 04:35 Eos # (Auto) 0.1 10^3/uL (0.0-0.7) 07/31/20 04:35 Baso # (Auto) 0.1 10^3/uL (0.0-0.1) 07/31/20 04:35 Absolute Nucleated RBC 0.00 x10^3/uL 07/31/20 04:35 Nucleated RBC % 0.0 /100WBC 07/31/20 04:35 Sodium 140 mmol/L (135-145) 07/31/20 04:35 Potassium 3.6 mmol/L (3.5-5.0) 07/31/20 04:35 Chloride 106 mmol/L (101-111) 07/31/20 04:35 Carbon Dioxide 24 mmol/L (21-32) 07/31/20 04:35 Anion Gap 10.0 (6-13) 07/31/20 04:35 BUN 16 mg/dL (6-20) 07/31/20 04:35 Creatinine 0.6 mg/dL (0.6-1.2) 07/31/20 04:35 Estimated GFR (MDRD) 134 (>89) 07/31/20 04:35 Glucose 128 mg/dL (70-100) H 07/31/20 04:35 Calcium 8.8 mg/dL (8.5-10.3) 07/31/20 04:35 Magnesium 2.2 mg/dL (1.7-2.8) 07/31/20 04:35 Total Bilirubin 0.7 mg/dL (0.2-1.0) 07/30/20 12:40 AST 25 IU/L (10-42) 07/30/20 12:40 ALT 24 IU/L (10-60) 07/30/20 12:40 Alkaline Phosphatase 39 IU/L (42-121) L 07/30/20 12:40 Total Protein 6.9 g/dL (6.7-8.2) 07/30/20 12:40 Albumin 4.0 g/dL (3.2-5.5) 07/30/20 12:40 Globulin 2.9 g/dL (2.1-4.2) 07/30/20 12:40 Albumin/Globulin Ratio 1.4 (1.0-2.2) 07/30/20 12:40 Lipase 29 U/L (22-51) 07/30/20 12:40 Blood Type A POSITIVE 07/30/20 13:47 Blood Type Recheck A POSITIVE 07/31/20 04:35 Antibody Screen NEGATIVE 07/30/20 13:47
[2020-07-31] MEDS: HYDROcod/ACETAM 5/325 MG TABLET PO PRN ×2 (17:20→21:25)
[2020-07-31] MEDS: KETOROLAC 30 MG/ML VIAL IVP SCH ×2 (17:21→18:12)
[2020-07-31] MEDS: ASPIRIN 325 MG TABLET PO SCH (17:21)
[2020-07-31] MEDS: ceFAZolin 2 GM in SODIUM CHLORIDE 0.9% 100ML 100 ML IV SCH ×2 (17:21→21:27)
[2020-07-31] MEDS: SODIUM CHLORIDE 0.9% 1,000 ML IV SCH (17:23)
[2020-08-01] MEDS: KETOROLAC 30 MG/ML VIAL IVP SCH ×4 (00:03→18:49)
[2020-08-01] MEDS: HYDROmorphone 2 MG/ML VIAL IVP PRN ×4 (00:08→07:51)
[2020-08-01] MEDS: HYDROcod/ACETAM 5/325 MG TABLET PO PRN ×4 (02:04→21:31)
[2020-08-01] MEDS: SODIUM CHLORIDE FLUSH 0.9% 10 ML SYRINGE IVP SCH ×3 (02:33→16:50)
[2020-08-01] MEDS: SODIUM CHLORIDE 0.9% 1,000 ML IV SCH ×3 (03:11→21:34)
[2020-08-01 05:48] LABS: BASOPHILS % (AUTO) 0.3 %; EOSINOPHILS % (AUTO) 0.1 %; HGB - HEMOGLOBIN 11.2 g/dL (14.0-18.0); LYMPHOCYTES # (AUTO) 1.7 10^3/uL (1.5-3.5); LYMPHOCYTES % (AUTO) 11.1 %; MEAN CORPUSCULAR HEMOGLOBIN 30.7 pg (27.0-31.0); MEAN CORPUSCULAR HGB CONC 33.3 g/dL (32.0-36.0); MEAN CORPUSCULAR VOLUME 92.1 fL (80.0-94.0); MONOCYTES # (AUTO) 1.7 10^3/uL (0.0-1.0); MONOCYTES % (AUTO) 10.7 %; PLT - PLATELET COUNT 198 10^3/uL (130-450); RED BLOOD COUNT 3.65 10^6/uL (4.70-6.10); RED CELL DISTRIBUTION WIDTH 13.4 % (12.0-15.0); WHITE BLOOD COUNT 15.6 x10^3/uL (4.8-10.8)
[2020-08-01 05:56] LABS: CALCIUM 8.2 mg/dL (8.5-10.3); CREATININE 0.7 mg/dL (0.6-1.2)
[2020-08-01] MEDS: GABAPENTIN 300 MG CAPSULE PO SCH ×3 (06:03→17:12)
[2020-08-01] MEDS: ASPIRIN 325 MG TABLET PO SCH ×2 (07:48→17:12)
[2020-08-01] MEDS: FLUoxetine 10 MG CAPSULE PO SCH (08:44)
[2020-08-01] MEDS: lisinopriL 20 MG TABLET PO SCH (08:45)
[2020-08-01] MEDS: TAMSULOSIN 0.4 MG CAPSULE PO SCH (08:45)
[2020-08-01] MEDS: FAMOTIDINE 20 MG TABLET PO SCH ×2 (08:45→21:31)
[2020-08-01] MEDS: BUPROPION HCL 75 MG PO SCH ×2 (08:46→21:31)
[2020-08-01] MEDS: hydrALAZINE INJ 20 MG/ML VIAL IVP PRN ×2 (09:29→21:28)
--- NOTE | 2020-08-01 12:18 | PROVIDER PROGRESS NOTE ---
Assessment/Plan - Problem List (1) Fracture of left hip Qualifiers: Encounter type: subsequent encounter Fracture type: closed Assessment/Plan: He had successful hip surgery with pinning done yesterday. Today is POD #1 Toradol was ordered on a schedule to help with pain control. The patient had reiteration for myself and his nurse that he can ask for more medications to control pain, he however wants to try to avoid narcotics. PT and OT to start today. (2) Oral ulcer Assessment/Plan: The patient was put on full liquid diet because he does not want to take solids which could get stuck in his oral ulcer,a nd since he needs to be able to flush the oral ulcer area, with head position down, after every meal, he wants this diet. Depending on how much he can ambulate and move and adjust his head position for flushing his oral ulcer, will depend on how we advance his diet to take solids. (3) Leukocytosis Assessment/Plan: White blood count is rising 11>> 14>> 15 today. There is no fever. He does have flushed cheeks however. He underwent COVID nasal swab testing (because of potential exposure in the [facility] OR, from a COVID-positive staff member). His COVID test is currently negative. Will send urine for U/A and culture and obtain chest x-ray, as he may have postop atelectasis or pneumonia. If there is a fever will draw blood cultures. Would start empiric antibiotics if urine or chest x-ray results show source for the elevated white blood count. (4) HTN (hypertension) Assessment/Plan: BP is poorly controlled. His HCTZ was stopped, since he is only getting a full liquid diet. His pain is not well managed, adding to the hypertension. PRN IV hydralazine has been ordered He is on his oral lisinopril 40 mg daily. Will add carvedilol 6.25 mg po bid for blood pressure control since HR is 90's. I explained to him that his blood pressure of 180 and 190 systolic, will not have a significant improvement with his home dose of HCTZ 12.5 mg started, and HCTZ may add to dehydration since he is only taking minimal diet and liquids.. (5) Prolonged QT syndrome Assessment/Plan: Is a history of several syncopal episodes, was diagnosed with prolonged QT syndrome. Continuous telemetry. Avoid QT-prolonging agents, like Zofran. (6) BPH (benign prostatic hyperplasia) Assessment/Plan: He is on his meds for BPH. He requested a coud catheter when he had urinary retention preoperatively. I saw how uncomfortable he was from urinary retention pre-op, when he was supine. The plan was for the urinary catheter to be discontinued post-op today, but the patient requests it be left in. Will schedule discontinue tomorrow. 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 (8) Anxiety Assessment/Plan: He is on both of his anxiolytics. The OT and PT and his RN reported that he is tensing muscles when BP measured and is hesitant to start rehab due to anxiety over the new surgical site "breaking". I will add Ativan 0.5 mg prn and I strongly suggested to him and his in room, that he take it. (9) Hypokalemia Assessment/Plan: Resolved with replacement. It may have been from HCTZ use before this admission. Follow BMP - Current Meds Current Meds: Current Medications Generic Name Dose Route Start Last Admin Trade Name Freq PRN Reason Stop Dose Admin Hydrocodone Bitart/Acetaminophen 1 tab 07/30/20 15:21 08/01/20 02:04 [place] 5/325 PO 1 tab Q4HR PRN Administration Pain 5 to 7 Aspirin 325 mg 07/31/20 17:00 08/01/20 07:48 Fany PO 325 mg BIDWM EVIE Administration Famotidine 20 mg 07/30/20 21:00 08/01/20 08:45 Pepcid PO 20 mg BID EVIE Administration Fluoxetine HCl 40 mg 07/31/20 09:00 08/01/20 08:44 Prozac PO 40 mg DAILY EVIE Administration Gabapentin 300 mg 08/01/20 06:00 08/01/20 11:54 Neurontin PO 300 mg Q6HR EVIE Administration Hydralazine HCl 10 mg 07/31/20 05:27 08/01/20 09:29 Apresoline Inj IVP 10 mg Q4H PRN Administration PER PHYSICIAN ORDER Hydromorphone HCl 2 mg 07/30/20 15:19 08/01/20 07:51 Dilaudid (Vial) IVP 2 mg Q2H PRN Administration PAIN Sodium Chloride 1,000 mls @ 100 mls/hr 07/31/20 14:00 08/01/20 03:11 Normal Saline 0.9% IV 100 mls/hr .Q10H EVIE Administration Ketorolac Tromethamine 30 mg 07/31/20 17:00 08/01/20 11:54 Toradol Inj (30mg) IVP 08/05/20 16:59 30 mg Q6HR EVIE Administration Lisinopril 40 mg 07/30/20 18:26 08/01/20 08:45 Zestril PO 40 mg DAILY EVIE Administration Patient Own Med ( 1 each 07/31/20 06:58 08/01/20 08:46 Bupropion Hcl [ PO 1 each Bupropion Hcl] 75 Mg BID EVIE Administration ) Prochlorperazine Edisylate 10 mg 07/31/20 14:00 07/31/20 19:51 Compazine Inj IVP 10 mg Q6HR PRN Administration Nausea / Vomiting Sodium Chloride 10 ml 07/31/20 17:00 08/01/20 08:53 Normal Saline Flush 0.9% IVP Not Given 0100,0900,1700 EVIE Sodium Chloride 10 ml 07/31/20 14:00 07/31/20 19:55 Normal Saline Flush 0.9% IVP 20 ml PRN PRN Administration NEEDED PER PROVIDER ORDERS Tamsulosin HCl 0.4 mg 07/30/20 17:13 08/01/20 08:45 Flomax PO 0.4 mg DAILY EVIE Administration - Lab Result Fish Bone Diagrams: 08/01/20 05:40 08/01/20 05:40 - Additional Planning My Orders: My Active Orders 07/31/20 Dinner DIET [Full Liquid Diet] [DIET] 07/31/20 17:00 Ketorolac Inj (30Mg) [Toradol Inj (30Mg)] 30 mg IVP Q6HR 08/01/20 06:00 Gabapentin [Neurontin] 300 mg PO Q6HR 08/01/20 13:00 carvediloL [Coreg] 3.125 mg PO BID 08/02/20 05:00 BMP - BASIC METABOLIC PANEL [CHEM] DAILYLAB CBC - COMP BLD CT W/AUTO DIFF [HEME] DAILYLAB Subjective - Subjective Patient Reports: Pain (States "I have no pain but I have discomfort". Then he rates his discomfort at 8/10.) Objective Vital Signs: Vital Signs - 24 hr 07/31/20 07/31/20 07/31/20 13:51 13:55 14:00 Temperature 36.9 C Heart Rate 99 99 91 Heart Rate [ Brachial] Respiratory 16 15 14 Rate Blood Pressure 158/89 H 170/96 H 158/93 H Blood Pressure [Left Brachial artery] Blood Pressure [Right Brachial artery] O2 Saturation 100 99 98 07/31/20 07/31/20 07/31/20 14:05 14:10 14:14 Temperature Heart Rate 92 92 95 Heart Rate [ Brachial] Respiratory 13 10 L 16 Rate Blood Pressure 158/92 H 155/93 H 143/95 H Blood Pressure [Left Brachial artery] Blood Pressure [Right Brachial artery] O2 Saturation 98 98 96 07/31/20 07/31/20 07/31/20 14:20 14:25 14:30 Temperature Heart Rate 88 82 74 Heart Rate [ Brachial] Respiratory 10 L 13 11 L Rate Blood Pressure 137/100 H 149/99 H 159/99 H Blood Pressure [Left Brachial artery] Blood Pressure [Right Brachial artery] O2 Saturation 96 97 97 07/31/20 07/31/20 07/31/20 14:35 14:40 14:44 Temperature Heart Rate 95 76 80 Heart Rate [ Brachial] Respiratory 12 12 17 Rate Blood Pressure 159/89 H 145/97 H 152/96 H Blood Pressure [Left Brachial artery] Blood Pressure [Right Brachial artery] O2 Saturation 94 97 97 07/31/20 07/31/20 07/31/20 14:50 14:54 15:30 Temperature 36.5 C Heart Rate 76 86 Heart Rate [ 85 Brachial] Respiratory 13 16 16 Rate Blood Pressure 158/87 H 153/92 H Blood Pressure 151/92 H [Left Brachial artery] Blood Pressure [Right Brachial artery] O2 Saturation 97 97 100 07/31/20 07/31/20 07/31/20 16:30 20:13 21:00 Temperature 36.7 C 36.6 C 37.1 C Heart Rate Heart Rate [ 76 73 94 Brachial] Respiratory 16 16 18 Rate Blood Pressure Blood Pressure 161/91 H 135/85 H 156/71 H [Left Brachial artery] Blood Pressure [Right Brachial artery] O2 Saturation 99 100 95 08/01/20 08/01/20 08/01/20 00:00 06:59 08:25 Temperature 36.7 C 37.2 C 36.8 C Heart Rate Heart Rate [ 76 83 80 Brachial] Respiratory 17 16 20 Rate Blood Pressure Blood Pressure 157/91 H 178/102 H 192/100 H [Left Brachial artery] Blood Pressure [Right Brachial artery] O2 Saturation 100 97 94 08/01/20 08/01/20 08/01/20 08:44 09:25 09:26 Temperature Heart Rate Heart Rate [ 72 74 Brachial] Respiratory Rate Blood Pressure Blood Pressure 177/83 H 184/92 H [Left Brachial artery] Blood Pressure 197/92 H 193/91 H [Right Brachial artery] O2 Saturation 08/01/20 08/01/20 08/01/20 09:30 09:35 09:40 Temperature Heart Rate Heart Rate [ 74 79 86 Brachial] Respiratory Rate Blood Pressure Blood Pressure 171/84 H 156/77 H [Left Brachial artery] Blood Pressure 175/90 H [Right Brachial artery] O2 Saturation 08/01/20 08/01/20 08/01/20 09:59 10:06 10:43 Temperature 36.8 C Heart Rate 87 Heart Rate [ 87 Brachial] Respiratory 20 Rate Blood Pressure 186/87 H Blood Pressure 181/86 H [Left Brachial artery] Blood Pressure [Right Brachial artery] O2 Saturation 94 Oxygen O2 Source Room air I&O (Last 24 Hrs): Intake and Output Totals x24h 07/30/20 07/31/20 08/01/20 23:59 23:59 23:59 Intake Total 200 3531 980 Output Total 550 650 250 Balance -350 2881 730 General: Alert, Oriented x3 HEENT: Mucous membr. moist/pink, Other (Cheeks are flushed) Neck: Supple Neuro: Alert, Non Focal Cardiovascular: Regular rate Respiratory: No respiratory distress Extremities: No edema - Results Results: Laboratory Results WBC 15.6 x10^3/uL (4.8-10.8) H 08/01/20 05:40 RBC 3.65 10^6/uL (4.70-6.10) L 08/01/20 05:40 Hgb 11.2 g/dL (14.0-18.0) L 08/01/20 05:40 Hct 33.6 % (42.0-52.0) L 08/01/20 05:40 MCV 92.1 fL (80.0-94.0) 08/01/20 05:40 MCH 30.7 pg (27.0-31.0) 08/01/20 05:40 MCHC 33.3 g/dL (32.0-36.0) 08/01/20 05:40 RDW 13.4 % (12.0-15.0) 08/01/20 05:40 Plt Count 198 10^3/uL (130-450) 08/01/20 05:40 MPV 10.0 fL (7.4-11.4) 08/01/20 05:40 Neut # (Auto) 12.0 10^3/uL (1.5-6.6) H 08/01/20 05:40 Lymph # (Auto) 1.7 10^3/uL (1.5-3.5) 08/01/20 05:40 [place] # (Auto) 1.7 10^3/uL (0.0-1.0) H 08/01/20 05:40 Eos # (Auto) 0.0 10^3/uL (0.0-0.7) 08/01/20 05:40 Baso # (Auto) 0.0 10^3/uL (0.0-0.1) 08/01/20 05:40 Absolute Nucleated RBC 0.00 x10^3/uL 08/01/20 05:40 Nucleated RBC % 0.0 /100WBC 08/01/20 05:40 Sodium 139 mmol/L (135-145) 08/01/20 05:40 Potassium 3.5 mmol/L (3.5-5.0) 08/01/20 05:40 Chloride 105 mmol/L (101-111) 08/01/20 05:40 Carbon Dioxide 22 mmol/L (21-32) 08/01/20 05:40 Anion Gap 12.0 (6-13) 08/01/20 05:40 BUN 19 mg/dL (6-20) 08/01/20 05:40 Creatinine 0.7 mg/dL (0.6-1.2) 08/01/20 05:40 Estimated GFR (MDRD) 112 (>89) 08/01/20 05:40 Glucose 124 mg/dL (70-100) H 08/01/20 05:40 Calcium 8.2 mg/dL (8.5-10.3) L 08/01/20 05:40 Magnesium 2.2 mg/dL (1.7-2.8) 07/31/20 04:35 Total Bilirubin 0.7 mg/dL (0.2-1.0) 07/30/20 12:40 AST 25 IU/L (10-42) 07/30/20 12:40 ALT 24 IU/L (10-60) 07/30/20 12:40 Alkaline Phosphatase 39 IU/L (42-121) L 07/30/20 12:40 Total Protein 6.9 g/dL (6.7-8.2) 07/30/20 12:40 Albumin 4.0 g/dL (3.2-5.5) 07/30/20 12:40 Globulin 2.9 g/dL (2.1-4.2) 07/30/20 12:40 Albumin/Globulin Ratio 1.4 (1.0-2.2) 07/30/20 12:40 Lipase 29 U/L (22-51) 07/30/20 12:40 Coronavirus (PCR) NEGATIVE 07/30/20 13:27 Blood Type A POSITIVE 07/30/20 13:47 Blood Type Recheck A POSITIVE 07/31/20 04:35 Antibody Screen NEGATIVE 07/30/20 13:47
--- NOTE | 2020-08-01 12:32 | PROVIDER PROGRESS NOTE ---
Subjective - Prog Note Date Prog Note Date: 08/01/20 Prog Note Time: 12:30 - Subjective Pt reports feeling: Improved (Some generalized body aches. Less hip pain) Objective - Vital Signs/Intake & Output Vital Signs: Vital Signs x48h Temp Pulse Pulse Resp BP BP BP 08/01/20 11:50 85 194/97 H 08/01/20 11:45 37.0 C 92 22 208/96 H 08/01/20 10:43 36.8 C 87 20 08/01/20 10:06 87 181/86 H 08/01/20 09:59 186/87 H 08/01/20 09:40 86 156/77 H 08/01/20 09:35 79 171/84 H 08/01/20 09:30 74 175/90 H 08/01/20 09:26 184/92 H 193/91 H 08/01/20 09:25 74 197/92 H 08/01/20 08:44 72 177/83 H 08/01/20 08:25 36.8 C 80 20 192/100 H 08/01/20 06:59 37.2 C 83 16 178/102 H Pulse Ox 08/01/20 11:50 08/01/20 11:45 95 08/01/20 10:43 94 08/01/20 10:06 08/01/20 09:59 08/01/20 09:40 08/01/20 09:35 08/01/20 09:30 08/01/20 09:26 08/01/20 09:25 08/01/20 08:44 08/01/20 08:25 94 08/01/20 06:59 97 Intake & Output: Intake & Output 07/29/20 07/30/20 07/31/20 08/01/20 23:59 23:59 23:59 23:59 Intake Total 200 3531 980 Output Total 550 650 250 Balance -350 2881 730 - Lab Results Fish Bones: 08/01/20 05:40 08/01/20 05:40 Other Labs: Lab Results x24hrs 08/01/20 08/01/20 07/30/20 Range/Units 05:40 05:40 13:27 WBC 15.6 H (4.8-10.8) x10^3/uL RBC 3.65 L (4.70-6.10) 10^6/uL Hgb 11.2 L (14.0-18.0) g/dL Hct 33.6 L (42.0-52.0) % MCV 92.1 (80.0-94.0) fL MCH 30.7 (27.0-31.0) pg MCHC 33.3 (32.0-36.0) g/dL RDW 13.4 (12.0-15.0) % Plt Count 198 (130-450) 10^3/uL MPV 10.0 (7.4-11.4) fL Neut # (Auto) 12.0 H (1.5-6.6) 10^3/uL Lymph # (Auto) 1.7 (1.5-3.5) 10^3/uL [place] # (Auto) 1.7 H (0.0-1.0) 10^3/uL Eos # (Auto) 0.0 (0.0-0.7) 10^3/uL Baso # (Auto) 0.0 (0.0-0.1) 10^3/uL Absolute Nucleated RBC 0.00 x10^3/uL Nucleated RBC % 0.0 /100WBC Sodium 139 (135-145) mmol/L Potassium 3.5 (3.5-5.0) mmol/L Chloride 105 (101-111) mmol/L Carbon Dioxide 22 (21-32) mmol/L Anion Gap 12.0 (6-13) BUN 19 (6-20) mg/dL Creatinine 0.7 (0.6-1.2) mg/dL Estimated GFR (MDRD) 112 (>89) Glucose 124 H (70-100) mg/dL Calcium 8.2 L (8.5-10.3) mg/dL Coronavirus (PCR) NEGATIVE - Other Results/Comments Other Results/Comments: EXAM: Dressing intact. Moves toes well. Sensation intact..Good cap filling. Some pain with hip motion Assessment/Plan - Problem List (1) Fracture of left hip Impression: Satis post op PLAN: Mobilize as tolerated. Qualifiers: Encounter type: subsequent encounter Fracture type: closed
[2020-08-01] MEDS ORDERED: carvediloL 3.125 MG TABLET PO SCH (13:00)
--- NOTE | 2020-08-01 13:05 | XRAY Report ---
PROCEDURE: Chest 1 View X-Ray INDICATIONS: Post-op elevated WBC TECHNIQUE: One view of the chest was acquired. COMPARISON: 07/30/2020 FINDINGS: Surgical changes and devices: None. Lungs and pleura: No pleural effusions or pneumothorax. Lungs are clear. Mediastinum: Mildly tortuous thoracic aorta is seen. Heart size is normal. Bones and chest wall: No suspicious bony lesions. Overlying soft tissues appear unremarkable. IMPRESSION: No acute cardiopulmonary pathology. Reviewed by: Efren Swain MD on 08/01/2020 12:04 PM AKDT Approved by: Efren Swain MD on 08/01/2020 12:04 PM AKDT Station ID: [id number]
[2020-08-01 13:33] LABS: BILIRUBIN,URINE NEGATIVE (NEGATIVE); GLUCOSE, URINE (UA) NEGATIVE (NEGATIVE); KETONES,URINE (UA) 15 mg/dL (NEGATIVE); LEUKOCYTE ESTERASE, URINE NEGATIVE (NEGATIVE); NITRITE,URINE NEGATIVE (NEGATIVE); OCCULT BLOOD,URINE SMALL (NEGATIVE); PH,URINE 5.5 PH (5.0-7.5); PROTEIN,URINE NEGATIVE (NEGATIVE); UROBILINOGEN,URINE 0.2 (NORMAL) E.U./dL (NORMAL)
[2020-08-01 13:46] LABS: CLARITY,URINE CLEAR (CLEAR)
[2020-08-01 14:01] LABS: BACTERIA,URINE Few /HPF (None Seen); SQUAMOUS EPITHELIAL CELL,UR NONE SEEN (<= Few)
[2020-08-01] MEDS ORDERED: GLYCOPYRROLATE 1 MG/5 ML VIAL IVP ONE (17:52)
[2020-08-01] MEDS ORDERED: fentaNYL 100 MCG/2 ML VIAL IVP ONE (17:52)
[2020-08-01] MEDS ORDERED: ePHEDrine 50 MG/ML VIAL IVP ONE (17:52)
[2020-08-01] MEDS ORDERED: MIDAZOLAM 2 MG/2 ML VIAL IVP ONE (17:52)
[2020-08-01] MEDS ORDERED: DEXAMETHASONE 4 MG/ML VIAL IVP ONE (17:52)
[2020-08-01] MEDS ORDERED: PROPOFOL 200 MG/20 ML VIAL IVP ONE (17:52)
[2020-08-01] MEDS: carvediloL 3.125 MG TABLET PO SCH (21:30)
[2020-08-02] MEDS: GABAPENTIN 300 MG CAPSULE PO SCH ×5 (00:12→23:50)
[2020-08-02] MEDS: KETOROLAC 30 MG/ML VIAL IVP SCH ×3 (00:13→10:56)
[2020-08-02] MEDS: SODIUM CHLORIDE FLUSH 0.9% 10 ML SYRINGE IVP SCH ×4 (00:14→23:50)
[2020-08-02] MEDS: HYDROcod/ACETAM 5/325 MG TABLET PO PRN ×2 (03:19→06:52)
[2020-08-02] MEDS: SODIUM CHLORIDE 0.9% 1,000 ML IV SCH ×3 (06:42→23:50)
[2020-08-02 06:50] LABS: BASOPHILS # (AUTO) 0.1 10^3/uL (0.0-0.1); BASOPHILS % (AUTO) 0.5 %; EOSINOPHILS # (AUTO) 0.1 10^3/uL (0.0-0.7); EOSINOPHILS % (AUTO) 1.1 %; HGB - HEMOGLOBIN 9.6 g/dL (14.0-18.0); LYMPHOCYTES # (AUTO) 1.7 10^3/uL (1.5-3.5); LYMPHOCYTES % (AUTO) 15.2 %; MEAN CORPUSCULAR HEMOGLOBIN 31.5 pg (27.0-31.0); MEAN CORPUSCULAR HGB CONC 34.2 g/dL (32.0-36.0); MEAN CORPUSCULAR VOLUME 92.1 fL (80.0-94.0); MEAN PLATELET VOLUME 9.8 fL (7.4-11.4); MONOCYTES # (AUTO) 1.1 10^3/uL (0.0-1.0); MONOCYTES % (AUTO) 10.3 %; NEUTROPHILS # (AUTO) 7.9 10^3/uL (1.5-6.6); NEUTROPHILS % (AUTO) 72.1 %; PLT - PLATELET COUNT 160 10^3/uL (130-450); RED BLOOD COUNT 3.05 10^6/uL (4.70-6.10); RED CELL DISTRIBUTION WIDTH 13.8 % (12.0-15.0); WHITE BLOOD COUNT 10.9 x10^3/uL (4.8-10.8)
[2020-08-02 06:58] LABS: CALCIUM 7.8 mg/dL (8.5-10.3); CREATININE 0.6 mg/dL (0.6-1.2); MAGNESIUM 2.1 mg/dL (1.7-2.8)
[2020-08-02] MEDS ORDERED: POTASSIUM CHLORIDE 20 MEQ TABLET PO ONE (08:00)
[2020-08-02] MEDS: POTASSIUM CHLOR 10 MEQ/100 ML 10 MEQ/100 ML BAG IV SCH ×2 (08:34→11:01)
[2020-08-02] MEDS: ASPIRIN 325 MG TABLET PO SCH ×2 (08:34→17:26)
[2020-08-02] MEDS: carvediloL 3.125 MG TABLET PO SCH ×2 (08:35→20:42)
[2020-08-02] MEDS: lisinopriL 20 MG TABLET PO SCH (08:36)
[2020-08-02] MEDS: BUPROPION HCL 75 MG PO SCH ×2 (08:37→20:49)
[2020-08-02] MEDS: FAMOTIDINE 20 MG TABLET PO SCH ×2 (08:37→20:42)
[2020-08-02] MEDS: TAMSULOSIN 0.4 MG CAPSULE PO SCH (08:38)
[2020-08-02] MEDS: FLUoxetine 10 MG CAPSULE PO SCH (08:39)
[2020-08-02] MEDS: HYDROmorphone 2 MG/ML VIAL IVP PRN (10:57)
[2020-08-02] MEDS: LORazepam 0.5 MG TABLET PO PRN (10:57)
--- NOTE | 2020-08-02 14:43 | PROVIDER PROGRESS NOTE ---
Subjective - Prog Note Date Prog Note Date: 08/02/20 - Subjective Subjective: He reports his pain is better controlled today. He was able to walk in his room. He is looking forward to going home as soon as possible. Current Medications - Current Medications Current Medications: Active Medications Acetaminophen (Tylenol) 650 - 975 mg PO Q4HR PRN PRN Reason: PAIN Last Admin: 08/02/20 16:40 Dose: 650 mg Documented by: Hydrocodone Bitart/Acetaminophen ([place] 5/325) 1 tab PO Q4HR PRN PRN Reason: Pain 5 to 7 Last Admin: 08/02/20 06:52 Dose: 1 tab Documented by: Aspirin (Fany) 325 mg PO BIDWM [facility] Last Admin: 08/02/20 08:34 Dose: 325 mg Documented by: Carvedilol (Coreg) 6.25 mg PO BID [facility] Last Admin: 08/02/20 08:35 Dose: 6.25 mg Documented by: Famotidine (Pepcid) 20 mg PO BID [facility] Last Admin: 08/02/20 08:37 Dose: 20 mg Documented by: Fluoxetine HCl (Prozac) 40 mg PO DAILY [facility] Last Admin: 08/02/20 08:39 Dose: 40 mg Documented by: Gabapentin (Neurontin) 300 mg PO Q6HR [facility] Last Admin: 08/02/20 12:10 Dose: 300 mg Documented by: Hydralazine HCl (Apresoline Inj) 10 mg IVP Q4H PRN PRN Reason: PER PHYSICIAN ORDER Last Admin: 08/01/20 21:28 Dose: 10 mg Documented by: Hydromorphone HCl (Dilaudid (Vial)) 2 mg IVP Q2H PRN PRN Reason: PAIN Last Admin: 08/02/20 10:57 Dose: 2 mg Documented by: Sodium Chloride (Normal Saline 0.9%) 1,000 mls @ 100 mls/hr IV .Q10H [facility] Last Infusion: 08/02/20 14:52 Dose: 0 mls/hr Documented by: Ketorolac Tromethamine (Toradol Inj (30mg)) 30 mg IVP Q6HR [facility] Stop: 08/05/20 16:59 Last Admin: 08/02/20 10:56 Dose: 30 mg Documented by: Lisinopril (Zestril) 40 mg PO DAILY [facility] Last Admin: 08/02/20 08:36 Dose: 40 mg Documented by: Lorazepam (Ativan) 0.5 mg PO Q6H PRN PRN Reason: Anxiety Last Admin: 08/02/20 10:57 Dose: 0.5 mg Documented by: Morphine Sulfate (Morphine (Carpuject)) 2 mg IVP Q2HR PRN PRN Reason: PAIN Oxycodone HCl (Roxicodone) 5 mg PO Q4HR PRN PRN Reason: PAIN Last Admin: 08/02/20 16:40 Dose: 5 mg Documented by: Patient Own Med ( Bupropion Hcl [ Bupropion Hcl] 75 Mg ) 1 each PO BID [facility] Last Admin: 08/02/20 08:37 Dose: 1 each Documented by: Prochlorperazine Edisylate (Compazine Inj) 10 mg IVP Q6HR PRN PRN Reason: Nausea / Vomiting Last Admin: 07/31/20 19:51 Dose: 10 mg Documented by: Sodium Chloride (Normal Saline Flush 0.9%) 10 ml IVP 0100,0900,1700 [facility] Last Admin: 08/02/20 08:39 Dose: Not Given Documented by: Sodium Chloride (Normal Saline Flush 0.9%) 10 ml IVP PRN PRN PRN Reason: NEEDED PER PROVIDER ORDERS Last Admin: 07/31/20 19:55 Dose: 20 ml Documented by: Tamsulosin HCl (Flomax) 0.4 mg PO DAILY [facility] Last Admin: 08/02/20 08:38 Dose: 0.4 mg Documented by: Fluoxetine HCl [Prozac] 40 mg PO DAILY 07/30/20 Gabapentin [Neurontin] 300 mg PO QID 07/30/20 Hydrochlorothiazide 12.5 mg PO DAILY 07/30/20 Lisinopril [Zestril] 40 mg PO DAILY 07/30/20 Tamsulosin [Flomax] 0.4 mg PO DAILY 07/30/20 buPROPion HCL [Bupropion HCl] 75 mg PO BID 07/30/20 Objective - Vital Signs/Intake & Output Reviewed Vital Signs: Yes Vital Signs: Vital Signs x48h Temp Pulse Resp BP Pulse Ox 08/02/20 10:57 36.7 C 81 18 169/97 H 98 08/02/20 08:20 36.7 C 93 18 189/92 H 98 08/02/20 06:58 36.7 C 85 18 98 Intake & Output: Intake & Output 07/30/20 07/31/20 08/01/20 08/02/20 23:59 23:59 23:59 23:59 Intake Total 200 3531 3328.333 2173.333 Output Total 589 632 5204 900 Balance -350 2881 2178.333 1273.333 - Objective General Appearance: positive: No acute distress, Alert Eyes Bilateral: positive: Normal inspection, Conjunctivae nml ENT: positive: ENT inspection nml Neck: positive: Nml inspection Respiratory: positive: No respiratory distress. negative: Wheezes, Rales Cardiovascular: positive: Regular rate & rhythm. negative: Tachycardia, Bradycardia, Systolic murmur Abdomen: positive: Non-tender, No distention. negative: Tenderness, Guarding, Rebound Skin: positive: Warm, Dry Extremities: positive: Full ROM, No pedal edema, Other (Dressing is in place over the lateral aspect of the left hip. No surrounding erythema. There is mild tenderness to palpation. Distal pulses are intact.) Neurologic/Psychiatric: negative: Oriented x3, Disoriented to person, Disoriented to place - Lab Results Fish Bones: 08/02/20 06:43 08/02/20 06:43 Other Labs: Lab Results x24hrs 08/02/20 08/02/20 Range/Units 06:43 06:43 WBC 10.9 H (4.8-10.8) x10^3/uL RBC 3.05 L (4.70-6.10) 10^6/uL Hgb 9.6 L (14.0-18.0) g/dL Hct 28.1 L (42.0-52.0) % MCV 92.1 (80.0-94.0) fL MCH 31.5 H (27.0-31.0) pg MCHC 34.2 (32.0-36.0) g/dL RDW 13.8 (12.0-15.0) % Plt Count 160 (130-450) 10^3/uL MPV 9.8 (7.4-11.4) fL Neut # (Auto) 7.9 H (1.5-6.6) 10^3/uL Lymph # (Auto) 1.7 (1.5-3.5) 10^3/uL [place] # (Auto) 1.1 H (0.0-1.0) 10^3/uL Eos # (Auto) 0.1 (0.0-0.7) 10^3/uL Baso # (Auto) 0.1 (0.0-0.1) 10^3/uL Absolute Nucleated RBC 0.00 x10^3/uL Nucleated RBC % 0.0 /100WBC Sodium 137 (135-145) mmol/L Potassium 3.1 L (3.5-5.0) mmol/L Chloride 105 (101-111) mmol/L Carbon Dioxide 24 (21-32) mmol/L Anion Gap 8.0 (6-13) BUN 15 (6-20) mg/dL Creatinine 0.6 (0.6-1.2) mg/dL Estimated GFR (MDRD) 134 (>89) Glucose 111 H (70-100) mg/dL Calcium 7.8 L (8.5-10.3) mg/dL Magnesium 2.1 (1.7-2.8) mg/dL Assessment/Plan - Problem List (1) Fracture of left hip Impression: He is postop day 2 of ORIF with pinning. His pain is better controlled today. We will continue with hydrocodone as needed. We will discontinue IV Toradol in preparation for likely discharge tomorrow. Continue with PT and OT. He will need aspirin 325 mg twice daily for 6 weeks postoperatively. Plan is likely to discharge home as the patient prefers that over a fdc facility. Qualifiers: Encounter type: subsequent encounter Fracture type: closed (2) Postoperative anemia Impression: His hemoglobin has trended down to 9.6 from 14.7 on admission. There is no obvious evidence of bleeding. We will continue to monitor overnight and if his hemoglobin is stable tomorrow then he is likely medically stable for discharge. Continue with aspirin for DVT prophylaxis. (3) Leukocytosis Impression: This is likely reactive in nature and has improved today. His white count is down to 10.9. There has been no evidence of infection. (4) HTN (hypertension) Impression: His blood pressure has been elevated and so carvedilol was added to his antihypertensive regimen. Today his blood pressure has improved to 150 systolic. We will continue to monitor if remains elevated then we will increase his dose of carvedilol. (5) BPH (benign prostatic hyperplasia) Impression: Stable. Continue Flomax. Will discontinue Larkin catheter today. (6) Prolonged QT syndrome Impression: Stable. Continue to monitor on telemetry and avoid QT prolonging medications.
[2020-08-02] MEDS: oxyCODONE 5 MG TABLET PO PRN ×2 (16:40→20:55)
[2020-08-02] MEDS: ACETAMINOPHEN 325 MG TABLET PO PRN ×2 (16:40→20:54)
--- NOTE | 2020-08-02 17:59 | PROVIDER PROGRESS NOTE ---
Subjective - Prog Note Date Prog Note Date: 08/02/20 Prog Note Time: 17:58 - Subjective Pt reports feeling: Improved Objective - Vital Signs/Intake & Output Vital Signs: Vital Signs x48h Temp Pulse Resp BP BP Pulse Ox 08/02/20 15:57 36.7 C 85 18 157/82 H 96 08/02/20 10:57 36.7 C 81 18 169/97 H 98 Intake & Output: Intake & Output 07/30/20 07/31/20 08/01/20 08/02/20 23:59 23:59 23:59 23:59 Intake Total 200 3531 3328.333 3230.000 Output Total 129 724 9019 1000 Balance -350 2881 2178.333 2230.000 - Lab Results Fish Bones: 08/02/20 06:43 08/02/20 06:43 Other Labs: Lab Results x24hrs 08/02/20 08/02/20 Range/Units 06:43 06:43 WBC 10.9 H (4.8-10.8) x10^3/uL RBC 3.05 L (4.70-6.10) 10^6/uL Hgb 9.6 L (14.0-18.0) g/dL Hct 28.1 L (42.0-52.0) % MCV 92.1 (80.0-94.0) fL MCH 31.5 H (27.0-31.0) pg MCHC 34.2 (32.0-36.0) g/dL RDW 13.8 (12.0-15.0) % Plt Count 160 (130-450) 10^3/uL MPV 9.8 (7.4-11.4) fL Neut # (Auto) 7.9 H (1.5-6.6) 10^3/uL Lymph # (Auto) 1.7 (1.5-3.5) 10^3/uL [place] # (Auto) 1.1 H (0.0-1.0) 10^3/uL Eos # (Auto) 0.1 (0.0-0.7) 10^3/uL Baso # (Auto) 0.1 (0.0-0.1) 10^3/uL Absolute Nucleated RBC 0.00 x10^3/uL Nucleated RBC % 0.0 /100WBC Sodium 137 (135-145) mmol/L Potassium 3.1 L (3.5-5.0) mmol/L Chloride 105 (101-111) mmol/L Carbon Dioxide 24 (21-32) mmol/L Anion Gap 8.0 (6-13) BUN 15 (6-20) mg/dL Creatinine 0.6 (0.6-1.2) mg/dL Estimated GFR (MDRD) 134 (>89) Glucose 111 H (70-100) mg/dL Calcium 7.8 L (8.5-10.3) mg/dL Magnesium 2.1 (1.7-2.8) mg/dL - Other Results/Comments Other Results/Comments: EXAM: Dressing intact. Up in chair, eating dinner. Less pain today Assessment/Plan - Problem List (1) Fracture of left hip Impression: Satis post op PLAN: Mobilize as tolerated. Qualifiers: Encounter type: subsequent encounter Fracture type: closed
[2020-08-03] MEDS: ACETAMINOPHEN 325 MG TABLET PO PRN (03:46)
[2020-08-03] MEDS: oxyCODONE 5 MG TABLET PO PRN ×2 (03:46→11:30)
[2020-08-03 05:15] LABS: BASOPHILS # (AUTO) 0.1 10^3/uL (0.0-0.1); BASOPHILS % (AUTO) 0.7 %; EOSINOPHILS # (AUTO) 0.3 10^3/uL (0.0-0.7); EOSINOPHILS % (AUTO) 3.1 %; HGB - HEMOGLOBIN 9.2 g/dL (14.0-18.0); LYMPHOCYTES # (AUTO) 1.5 10^3/uL (1.5-3.5); LYMPHOCYTES % (AUTO) 14.2 %; MEAN CORPUSCULAR HEMOGLOBIN 31.2 pg (27.0-31.0); MEAN CORPUSCULAR HGB CONC 33.6 g/dL (32.0-36.0); MEAN CORPUSCULAR VOLUME 92.9 fL (80.0-94.0); MEAN PLATELET VOLUME 10.3 fL (7.4-11.4); MONOCYTES # (AUTO) 1.1 10^3/uL (0.0-1.0); NEUTROPHILS # (AUTO) 7.7 10^3/uL (1.5-6.6); NEUTROPHILS % (AUTO) 71.3 %; PLT - PLATELET COUNT 190 10^3/uL (130-450); RED BLOOD COUNT 2.95 10^6/uL (4.70-6.10); RED CELL DISTRIBUTION WIDTH 13.6 % (12.0-15.0); WHITE BLOOD COUNT 10.7 x10^3/uL (4.8-10.8)
[2020-08-03 05:28] LABS: CALCIUM 8.4 mg/dL (8.5-10.3); CREATININE 0.6 mg/dL (0.6-1.2); MAGNESIUM 2.3 mg/dL (1.7-2.8); PHOSPHORUS 2.7 mg/dL (2.5-4.6)
[2020-08-03] MEDS: GABAPENTIN 300 MG CAPSULE PO SCH ×2 (05:38→11:54)
[2020-08-03] MEDS: LORazepam 0.5 MG TABLET PO PRN (06:20)
--- NOTE | 2020-08-03 08:48 | Discharge Plan ---
Discharge Plan Problem Reviewed?: Yes Disposition: Home Health Service Condition: Stable Prescriptions: HYDROcod/ACETAM 5/325 [[place] 5/325] 1 tab PO Q4HR PRN #20 tablet PRN Reason: Pain 5 to 7 Aspirin [Fany] 325 mg PO BIDWM #28 tablet Docusate Sodium 250Mg Capsule [Colace 250Mg Capsule] 250 mg PO DAILY #14 capsule carvediloL [Coreg] 6.25 mg PO BID #60 tablet Alendronate [Fosamax] 70 mg PO Q7D #4 tablet Diet: Regular Activity Restrictions: Wt Bearing as Tolerated Assistance Devices: Walker [facility] Concerns: You were in the hospital because of a left hip fracture and this required surgical intervention. You have done well postoperatively with physical therapy and you are now stable for discharge to home. You need to continue outpatient physical therapy. Plan of Treatment: You will need to take aspirin 325 mg twice daily for 2 weeks to help prevent a blood clot from developing in your legs as this can occur after surgical inter vention. You will also need to begin taking a medication called Fosamax in 2 weeks which can help treat osteoporosis. This is a medication that you will take once a week. You may begin this on August 13. You are provided with a prescription for pain medication to take as needed. You were also started on another blood pressure medication called carvedilol as your blood pressure has been elevated. Please take this twice a day and follow- up with your primary care provider to follow-up on your blood pressure. Assessment: The patient expressed understanding of the treatment plan. Additional Instructions or Follow Up instructions: Please follow-up with your primary care provider in 1 to 2 weeks. Please also follow-up with the orthopedic surgeon in 10-14 days. Follow-Up Care: Home Health - PT, Home Health - OT No Smoking: If you smoke, Please STOP! Call for help. Follow-up with: MELECIO BELL MD [Primary Care Provider] -
[2020-08-03] MEDS ORDERED: carvediloL 12.5 MG TABLET PO SCH (09:00)
[2020-08-03] MEDS ORDERED: carvediloL 3.125 MG TABLET PO SCH (09:00)
[2020-08-03] MEDS ORDERED: DOCUSATE SODIUM 250 MG CAPSULE PO SCH (09:00)
[2020-08-03] MEDS: FAMOTIDINE 20 MG TABLET PO SCH (10:09)
[2020-08-03] MEDS: ASPIRIN 325 MG TABLET PO SCH (10:09)
[2020-08-03] MEDS: lisinopriL 20 MG TABLET PO SCH (10:10)
[2020-08-03] MEDS: FLUoxetine 10 MG CAPSULE PO SCH (10:10)
[2020-08-03] MEDS: TAMSULOSIN 0.4 MG CAPSULE PO SCH (10:10)
[2020-08-03] MEDS: HYDROcod/ACETAM 5/325 MG TABLET PO PRN (10:10)
[2020-08-03] MEDS: BUPROPION HCL 75 MG PO SCH (11:54)
[2020-08-03] MEDS: SODIUM CHLORIDE FLUSH 0.9% 10 ML SYRINGE IVP SCH (11:54)
--- NOTE | 2020-08-03 12:04 | PROVIDER PROGRESS NOTE ---
Subjective - Prog Note Date Prog Note Date: 08/03/20 Prog Note Time: 12:01 - Subjective Pt reports feeling: Improved Objective - Vital Signs/Intake & Output Vital Signs: Vital Signs x48h Pulse BP 08/03/20 04:43 77 137/87 H Intake & Output: Intake & Output 07/31/20 08/01/20 08/02/20 08/03/20 23:59 23:59 23:59 23:59 Intake Total 3531 3328.333 3413.333 963 Output Total 650 1150 1525 1150 Balance 2881 2178.333 1888.333 -187 - Lab Results Fish Bones: 08/03/20 04:50 08/03/20 04:50 Other Labs: Lab Results x24hrs 08/03/20 08/03/20 Range/Units 04:50 04:50 WBC 10.7 (4.8-10.8) x10^3/uL RBC 2.95 L (4.70-6.10) 10^6/uL Hgb 9.2 L (14.0-18.0) g/dL Hct 27.4 L (42.0-52.0) % MCV 92.9 (80.0-94.0) fL MCH 31.2 H (27.0-31.0) pg MCHC 33.6 (32.0-36.0) g/dL RDW 13.6 (12.0-15.0) % Plt Count 190 (130-450) 10^3/uL MPV 10.3 (7.4-11.4) fL Neut # (Auto) 7.7 H (1.5-6.6) 10^3/uL Lymph # (Auto) 1.5 (1.5-3.5) 10^3/uL [place] # (Auto) 1.1 H (0.0-1.0) 10^3/uL Eos # (Auto) 0.3 (0.0-0.7) 10^3/uL Baso # (Auto) 0.1 (0.0-0.1) 10^3/uL Absolute Nucleated RBC 0.00 x10^3/uL Nucleated RBC % 0.0 /100WBC Sodium 137 (135-145) mmol/L Potassium 4.1 (3.5-5.0) mmol/L Chloride 104 (101-111) mmol/L Carbon Dioxide 24 (21-32) mmol/L Anion Gap 9.0 (6-13) BUN 14 (6-20) mg/dL Creatinine 0.6 (0.6-1.2) mg/dL Estimated GFR (MDRD) 134 (>89) Glucose 116 H (70-100) mg/dL Calcium 8.4 L (8.5-10.3) mg/dL Phosphorus 2.7 (2.5-4.6) mg/dL Magnesium 2.3 (1.7-2.8) mg/dL - Other Results/Comments Other Results/Comments: EXAM: Stable serosangious drainage on hip wound dressing. Dressing changed. Moving toes well. Up in chair with mild pain. Ambulating on floor - WBAT on left. Sensation ok. Assessment/Plan - Problem List (1) Fracture of left hip Impression: Satis post op PLAN: Discharge today. Continue walker ambulate - WBAT on left. Aspirin x 10- 14 days. Follow up in 2 weeks in orthopedic clinic for benito out and new XR. Qualifiers: Encounter type: subsequent encounter Fracture type: closed
--- NOTE | 2020-08-03 12:25 | DISCHARGE SUMMARY ---
"Discharge Summary Admit Date: 07/30/20 Discharge Date: 09/02/20 Discharging Provider: Kristian Hastings Primary Care Provider: Rola Ponce Code Status: Attempt Resuscitation Condition at Discharge: Stable Discharge Disposition: Home Health Service - DIAGNOSES Admission Diagnoses: Left hip fracture Preoperative evaluation Fall Hypertension Prolonged QTC syndrome Hypokalemia BPH Chronic pain including shingles pain Anxiety Discharge Diagnoses with Status of Each Condition: Closed left hip fracture - stable. Postoperative anemia - stable. Leukocytosis - resolved. Hypertension - stable. BPH - stable. Prolonged QT syndrome - stable. - HPI History of Present Illness: Please refer to H&P of Dr. France on 07/30/2020. - CONSULTS | PROCEDURES Consultations: Orthopedic Surgery, PT/OT, Social Work Procedures: He underwent closed reduction and long InterTAN nailing of left hip fracture on 07/31/20. - HOSPITAL COURSE Hospital Course: He was admitted for left hip fracture and went to the OR the following day with orthopedic surgery for close reduction and InterTAN nailing of the left hip. He did well postoperatively with physical therapy. He did have postoperative anemia but his hemoglobin has been stable without evidence of bleeding. The patient preferred to go home rather than a skilled nurse facility and so he was discharged home with home health. He was discharged on aspirin 325 mg twice daily for 2 weeks as recommended by orthopedic surgery. He was also discharged on Fosamax to begin that in 2 weeks. He was also provided with a prescription for oxycodone. He had also been hypertensive during this hospitalization and his home antihypertensives were resumed. He was also started on carvedilol 6.25 mg twice daily. He was asked to follow-up with his primary care provider as he may need adjustment of his antihypertensives in the future. - ALLERGIES Allergies/Adverse Reactions: Allergies Allergy/AdvReac Type Severity Reaction Status Date / Time clindamycin Allergy Unknown Verified 07/30/20 12:18 - MEDICATIONS Home Medications: Ambulatory Orders Medication Instructions Recorded Confirmed Fluoxetine HCl [Prozac] 40 mg PO DAILY 07/30/20 07/30/20 Gabapentin [Neurontin] 300 mg PO QID 07/30/20 07/30/20 Hydrochlorothiazide 12.5 mg PO DAILY 07/30/20 07/30/20 Lisinopril [Zestril] 40 mg PO DAILY 07/30/20 07/30/20 Tamsulosin [Flomax] 0.4 mg PO DAILY 07/30/20 07/30/20 buPROPion HCL [Bupropion HCl] 75 mg PO BID 07/30/20 07/30/20 Alendronate [Fosamax] 70 mg PO Q7D #4 tablet 08/03/20 Aspirin [Fany] 325 mg PO BIDWM #28 tablet 08/03/20 Docusate Sodium 250Mg Capsule 250 mg PO DAILY #14 capsule 08/03/20 [Colace 250Mg Capsule] HYDROcod/ACETAM 5/325 [[place] 5/325] 1 tab PO Q4HR PRN #20 tablet 08/03/20 carvediloL [Coreg] 6.25 mg PO BID #60 tablet 08/03/20 - PHYSICAL EXAM AT DISCHARGE General Appearance: positive: No acute distress, Alert Eyes Bilateral: positive: Normal inspection, Conjunctivae nml ENT: positive: ENT inspection nml Neck: positive: Nml inspection Respiratory: positive: No respiratory distress. negative: Wheezes, Rales Cardiovascular: positive: Regular rate & rhythm, No murmur. negative: Tachycardia, Bradycardia, Systolic murmur Abdomen: positive: Non-tender, No distention. negative: Tenderness, Guarding, Rebound Skin: positive: Warm, Dry Extremities: positive: Other (Dressing is in place over the lateral aspect of the left hip. This was saturated with serosanguineous fluid and this was changed prior to discharge. He did have ecchymosis over the posterior aspect of his left thigh.) Neurologic/Psychiatric: positive: Oriented x3. negative: Disoriented to person, Disoriented to place, Disoriented to time Physical Exam Other/Comments: Vital Signs (72 hours) 08/01/20 08/01/20 08/01/20 17:39 21:30 21:45 Temperature 36.7 C Heart Rate [ 89 95 90 Brachial] Respiratory 18 Rate Blood Pressure Blood Pressure 150/89 H 163/91 H [Left Brachial artery] Blood Pressure 173/85 H [Right Brachial artery] O2 Saturation 99 08/01/20 08/01/20 08/02/20 21:56 21:57 00:20 Temperature 37.1 C Heart Rate [ 89 84 Brachial] Respiratory 17 Rate Blood Pressure 148/73 H Blood Pressure 163/97 H [Left Brachial artery] Blood Pressure 148/73 H [Right Brachial artery] O2 Saturation 99 08/02/20 08/02/20 08/02/20 06:58 08:20 10:57 Temperature 36.7 C 36.7 C 36.7 C Heart Rate [ 85 93 81 Brachial] Respiratory 18 18 18 Rate Blood Pressure Blood Pressure 189/92 H 169/97 H [Left Brachial artery] Blood Pressure [Right Brachial artery] O2 Saturation 98 98 98 08/02/20 08/02/20 08/02/20 15:57 20:52 23:51 Temperature 36.7 C 37.1 C 37.2 C Heart Rate [ 85 92 72 Brachial] Respiratory 18 18 16 Rate Blood Pressure Blood Pressure [Left Brachial artery] Blood Pressure 157/82 H 165/85 H 150/91 H [Right Brachial artery] O2 Saturation 96 96 99 08/03/20 08/03/20 08/03/20 03:35 04:43 08:00 Temperature 36.4 C L 36.7 C Heart Rate [ 66 77 77 Brachial] Respiratory 16 18 Rate Blood Pressure Blood Pressure [Left Brachial artery] Blood Pressure 161/91 H 137/87 H 167/94 H [Right Brachial artery] O2 Saturation 100 98 08/03/20 12:32 Temperature 36.8 C Heart Rate [ 72 Brachial] Respiratory 17 Rate Blood Pressure Blood Pressure [Left Brachial artery] Blood Pressure 174/93 H [Right Brachial artery] O2 Saturation 99 - LABS Result Diagrams: 08/03/20 04:50 08/03/20 04:50 - DIAGNOSTIC IMAGING Diagnostic Imaging Results: Final report reviewed - FOLLOW UP Follow Up: He was asked to follow-up with his primary care provider in 1 to 2 weeks and with orthopedic surgery in 10 to 14 days. - TIME SPENT Time Spent in Discharge (Minutes): 32"
[2020-08-03 12:33] VITALS: BP 174/93
== END 2020-08-03 13:30 | disposition home health service (06) | DRG 481 ==
LOC: ED 11:58 → MS2 14:41
PROVIDERS: ADMIT Internal Medicine; ATTEND Internal Medicine
PROC: 0QS706Z Reposition Left Upper Femur with Intramedullary Internal Fixation Device, Open Approach (ICD-10-PCS; principal; 2020-07-31 08:30)
DX: S72.002A Fracture of unspecified part of neck of left femur, initial encounter for closed fracture (principal); S72.122A Displaced fracture of lesser trochanter of left femur, initial encounter for closed fracture; W11.XXXA Fall on and from ladder, initial encounter; S72.112A Displaced fracture of greater trochanter of left femur, initial encounter for closed fracture; B02.29 Other postherpetic nervous system involvement; E78.00 Pure hypercholesterolemia, unspecified; W17.89XA Other fall from one level to another, initial encounter; Y93.H3 Activity, building and construction; Y92.018 Other place in single-family (private) house as the place of occurrence of the external cause; E87.6 Hypokalemia; D64.9 Anemia, unspecified; I10 Essential (primary) hypertension; I45.81 Long QT syndrome; N40.1 Benign prostatic hyperplasia with lower urinary tract symptoms; R33.8 Other retention of urine; K12.1 Other forms of stomatitis; M15.0 Primary generalized (osteo)arthritis; F41.9 Anxiety disorder, unspecified; G89.29 Other chronic pain; M54.9 Dorsalgia, unspecified; Z20.828 Contact with and (suspected) exposure to other viral communicable diseases; Z79.899 Other long term (current) drug therapy
CPT/HCPCS: 36415; 71045; 80048; 80053; 81001; 83690; 83735; 84100; 85025; 86850; 86900; 86901; 87086; 93005; 96374; 99284

== ENCOUNTER 2020-09-08 07:38 | Outpatient (CLI) | payer MEDICARE ==
--- NOTE | 2020-09-12 08:50 | XRAY Report ---
PROCEDURE: Hip 1 View LT INDICATIONS: L HIP POST-OP TECHNIQUE: 5 views of the hip were acquired. COMPARISON: Fracture fixation plain films 07/31/2020, also acute trauma plain films 07/30/2020. FINDINGS: Bones: No previously unidentified fractures or dislocations. The intertrochanteric fracture fixatio n devices appear free of disruption or loosening. The lesser trochanteric displaced fragment has migr ated slightly medially in relationship to the acute trauma plain films. No suspicious bony lesions. The visualized pelvic ring appears intact. Soft tissues: No suspicious soft tissue calcifications or masses. IMPRESSION: Maintenance of anatomic alignment previously present during fracture fixation, no sign of device loos ening or disruption. Reviewed by: Raad Rodríguez MD on 09/12/2020 8:49 AM PST Approved by: Raad Rodríguez MD on 09/12/2020 8:49 AM PST Station ID: [id number]
== END 2020-09-08 23:59 | disposition home or self-care (01) ==
LOC: DI.WCP 07:38
PROVIDERS: ATTEND Physician Assistant
DX: S72.142D Displaced intertrochanteric fracture of left femur, subsequent encounter for closed fracture with routine healing (principal)

== ENCOUNTER 2020-11-07 08:56 | Emergency (ER) | payer MEDICARE ==
--- NOTE | 2020-11-07 10:26 | ED Physician Documentation ---
History of Present Illness - Stated complaint Stated Complaint: BLOOD PRESSURE ISSUES - Chief complaint Chief Complaint: Cardiac - History obtained from History obtained from: Patient - Additonal information Additional information: 70-year-old man with past medical history of high blood pressure presents with asymptomatic hypertension for the past several months after breaking his hip. Patient has been taking his blood pressure at home and it has been in the systolic 120s. He denies lightheadedness, chest pain, shortness of breath, vomiting, back pain. Review of Systems Ten Systems: 10 systems reviewed and negative Constitutional: denies: Fever, Chills, Myalgias Eyes: denies: Loss of vision Cardiac: denies: Chest pain / pressure, Palpitations Respiratory: denies: Dyspnea, Cough GI: denies: Abdominal Pain, Nausea : denies: Hematuria Skin: denies: Rash Musculoskeletal: denies: Back pain Neurologic: denies: Focal weakness PD PAST MEDICAL HISTORY - Past Medical History Cardiovascular: Hypertension, High cholesterol Respiratory: None Neuro: None Endocrine/Autoimmune: None GI: GERD : Benign prostate hypertrophy Psych: Depression Musculoskeletal: Osteoarthritis, Other Derm: None - Past Surgical History Past Surgical History: No HEENT: Tonsil/Adenoidectomy, Other (Jaw surgery) - Present Medications Home Medications: Ambulatory Orders Medication Instructions Recorded Confirmed Fluoxetine HCl [Prozac] 40 mg PO DAILY 07/30/20 07/30/20 Gabapentin [Neurontin] 300 mg PO QID 07/30/20 07/30/20 Hydrochlorothiazide 12.5 mg PO DAILY 07/30/20 07/30/20 Lisinopril [Zestril] 40 mg PO DAILY 07/30/20 07/30/20 Tamsulosin [Flomax] 0.4 mg PO DAILY 07/30/20 07/30/20 buPROPion HCL [Bupropion HCl] 75 mg PO BID 07/30/20 07/30/20 Alendronate [Fosamax] 70 mg PO Q7D #4 tablet 08/03/20 Aspirin [Fany] 325 mg PO BIDWM #28 tablet 08/03/20 Docusate Sodium 250Mg Capsule 250 mg PO DAILY #14 capsule 08/03/20 [Colace 250Mg Capsule] HYDROcod/ACETAM 5/325 [[place] 5/325] 1 tab PO Q4HR PRN #20 tablet 08/03/20 carvediloL [Coreg] 6.25 mg PO BID #60 tablet 08/03/20 amLODIPine [Norvasc] 5 mg PO DAILY 15 Days #15 tablet 11/07/20 - Allergies Allergies/Adverse Reactions: Allergies Allergy/AdvReac Type Severity Reaction Status Date / Time clindamycin Allergy Unknown Verified 11/07/20 09:21 - Social History Does the pt smoke?: No Smoking Status: Never smoker Does the pt drink ETOH?: No Does the pt have substance abuse?: No - Immunizations Immunizations are current?: Yes - POLST Patient has POLST: No PD ED PE NORMAL - Vitals Vital signs reviewed: Yes - General General: Alert and oriented X 3 - HEENT HEENT: Atraumatic, PERRL, EOMI - Neck Neck: Supple, no meningeal sign - Cardiac Cardiac: RRR - Respiratory Respiratory: No respiratory distress, Clear bilaterally - Abdomen Abdomen: Non tender, Non distended - Male Male : Deferred - Rectal Rectal: Deferred - Derm Derm: Normal color - Extremities Extremities: No deformity, No edema - Neuro Neuro: Alert and oriented X 3 - Psych Psych: Normal mood, Normal affect Results - Vitals Vitals: Vital Signs - 24 hr 11/07/20 11/07/20 11/07/20 09:18 10:37 10:45 Temperature 36.3 C L Heart Rate 57 L 56 L 57 L Respiratory 16 17 18 Rate Blood Pressure 199/106 H 182/105 H 201/111 H O2 Saturation 95 94 11/07/20 11:00 Temperature Heart Rate 55 L Respiratory 18 Rate Blood Pressure 188/109 H O2 Saturation Oxygen O2 Source Room air - Labs Labs: Laboratory Tests 11/07/20 11/07/20 10:27 10:27 WBC 13.3 H RBC 5.73 Hgb 16.7 Hct 50.0 MCV 87.3 MCH 29.1 MCHC 33.4 RDW 13.5 Plt Count 292 MPV 9.8 Neut # (Auto) 10.9 H Lymph # (Auto) 1.5 [place] # (Auto) 0.7 Eos # (Auto) 0.1 Baso # (Auto) 0.1 Absolute Nucleated RBC 0.00 Nucleated RBC % 0.0 Sodium 134 L Potassium 3.4 L Chloride 95 L Carbon Dioxide 24 Anion Gap 15.0 H BUN 18 Creatinine 0.7 Estimated GFR (MDRD) 112 Glucose 118 H Calcium 9.6 Total Bilirubin 0.7 AST 39 ALT 40 Alkaline Phosphatase 62 Total Protein 8.2 Albumin 4.8 Globulin 3.4 Albumin/Globulin Ratio 1.4 PD MEDICAL DECISION MAKING - ED course ED course: EKG normal. d/w patient that since he is experiencing asymptomatic hypertension, there is no need for emergent medications to lower his blood pressure, however he will need to follow up with his primary doctor this week. He was offered screening labwork, cxr, and accepted. will administer amlodipine and reevaluate. Patient still asymptomatic. discussed that he will need to f/u with his primary this week. return precautions given. Departure - Departure Disposition: 01 Home, Self Care Clinical Impression: Asymptomatic hypertension Condition: Good Instructions: Hypertension Dc Prescriptions: amLODIPine [Norvasc] 5 mg PO DAILY 15 Days #15 tablet
[2020-11-07] MEDS ORDERED: amLODIPine 5 MG TABLET PO STA (10:27)
--- NOTE | 2020-11-07 10:33 | XRAY Report ---
PROCEDURE: Chest 1 View X-Ray INDICATIONS: Chest pain TECHNIQUE: One view of the chest was acquired. COMPARISON: 08/01/2020. FINDINGS: Surgical changes and devices: None. Lungs and pleura: No pleural effusions or pneumothorax. Lungs are clear. Mediastinum: Mediastinal contours appear normal. Heart size is normal. Bones and chest wall: No suspicious bony lesions. Overlying soft tissues appear unremarkable. IMPRESSION: No acute disease. Reviewed by: Sebastián Miles MD on 11/07/2020 10:32 AM [facility] Approved by: Sebastián Miles MD on 11/07/2020 10:32 AM [facility] Station ID: [id number]
[2020-11-07 10:40] LABS: BASOPHILS # (AUTO) 0.1 10^3/uL (0.0-0.1); BASOPHILS % (AUTO) 0.4 %; EOSINOPHILS # (AUTO) 0.1 10^3/uL (0.0-0.7); EOSINOPHILS % (AUTO) 0.4 %; HGB - HEMOGLOBIN 16.7 g/dL (14.0-18.0); LYMPHOCYTES # (AUTO) 1.5 10^3/uL (1.5-3.5); LYMPHOCYTES % (AUTO) 11.5 %; MEAN CORPUSCULAR HEMOGLOBIN 29.1 pg (27.0-31.0); MEAN CORPUSCULAR HGB CONC 33.4 g/dL (32.0-36.0); MEAN CORPUSCULAR VOLUME 87.3 fL (80.0-94.0); MEAN PLATELET VOLUME 9.8 fL (7.4-11.4); MONOCYTES # (AUTO) 0.7 10^3/uL (0.0-1.0); MONOCYTES % (AUTO) 5.4 %; NEUTROPHILS # (AUTO) 10.9 10^3/uL (1.5-6.6); NEUTROPHILS % (AUTO) 81.7 %; PLT - PLATELET COUNT 292 10^3/uL (130-450); RED BLOOD COUNT 5.73 10^6/uL (4.70-6.10); RED CELL DISTRIBUTION WIDTH 13.5 % (12.0-15.0); WHITE BLOOD COUNT 13.3 x10^3/uL (4.8-10.8)
[2020-11-07 10:52] LABS: ALBUMIN 4.8 g/dL (3.2-5.5); ALBUMIN/GLOBULIN RATIO 1.4 (1.0-2.2); BILIRUBIN,TOTAL 0.7 mg/dL (0.2-1.0); CALCIUM 9.6 mg/dL (8.5-10.3); CREATININE 0.7 mg/dL (0.6-1.2); POTASSIUM 3.4 mmol/L (3.5-5.0); TOTAL PROTEIN 8.2 g/dL (6.7-8.2)
[2020-11-07] MEDS ORDERED: POTASSIUM CHLORIDE 20 MEQ/15 ML UDC PO STA (11:25)
[2020-11-07 13:24] VITALS: BP 197/118
== END 2020-11-07 11:43 | disposition home or self-care (01) ==
LOC: ED 08:56
DX: I10 Essential (primary) hypertension (principal)
CPT/HCPCS: 36415; 71045; 80053; 85025; 93005; 99283; 99284; A9270; 83690; 84484

== ENCOUNTER 2020-11-30 08:40 | Outpatient (CLI) | payer MEDICARE ==
[2020-11-30 09:40] VITALS: BP 155/96
--- NOTE | 2020-11-30 09:40 | SLEEP CARE CONSULTATION ---
Information from patient questionnaire entered by Tita Hair. I have reviewed and concur with the information entered by Tita Hair. This document represents the service I personally performed and the decisions made by me, Amelia Sheth ARNP. History of Present Illness Service Date and Time: 11/30/2020 0840 Reason for Visit: New patient Chief Complaint: reports: Snoring, Observed pauses in breathing, Frequent awakenings at night, Other (hypertension spikes whenever asleep, apparent sleep apnea longer). denies: Unrefreshed sleep, Excessive daytime sleepiness, Fatigue Date of Onset: BP spikes - 2 months Usual bedtime: 9 pm Time it takes to fall asleep: 15 minutes Snores at night: Yes Observed to quit breathing while asleep: Yes Sleeps alone due to snoring: No Number of times waking at night: 4-5 Reasons for waking at night: reports: Snoring, Bathroom. denies: Choking, Gasping for air Toss, Turn, or Twitch while sleeping: Yes (whole spasms while sleeping) Recalls having dreams: No Usually gets out of bed at: 6:30-7 am Feels refreshed in the morning: Yes Morning headache: No Sleepy or fatigued during the day: Yes (hypertension meds added) Ever fallen asleep while driving: No Takes day naps: Yes (daily, about an hour) Dreams during day naps: Yes (of course, but do not remember) Prior sleep studies: No Additional HPI information: I had the pleasure of seeing TULIO CASTANEDA today regarding the possibility of him having a sleep disorder. His current complaints are hypertension spikes whenever he sleeps and apparent sleep apnea. He states his tells him he snores and has pauses in breathing. He states he wakes refreshed but does get tired later in the day and takes a daily nap for about an hour. He states he measures his blood pressure upon awakening and it is usually 200s systolic/ 100 diastolic upon getting up. He states it goes down and by afternoon is 120s systolic. He states he feels fine today, no problem with headaches, heart palpitations or chest pain. He has no shortness of breath. He states he also has a little bit of white coat syndrome. He is on 4 different medications for his blood pressure. He states he has been having these spikes of elevated hypertension more since his hip fracture 07-30-20. He has only been able to sleep on his back after the fracture and has been having instance of whole body spasms while sleeping. - Parasomnia Symptoms Ever been unable to move upon waking from sleep: No Walks in sleep: No Talks in sleep: No Ever acted out dreams in sleep: No Ever felt weak in the knees when startled or emotional: No Bothered by creepy, crawly, restless sensations in legs: No Problems with memory or concentration: No Subjective Initial [place] Sleepiness Scale score: 3 (in 2020) Past Medical History Past Medical History: reports: Hypertension, Arthritis, Depression, Other (fractured hip 07/30/20). 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 Patient is and lives in [place]. Have you smoked in the past 12 months: No Alcohol use: Yes Alcohol amount and frequency: 1-2 drinks 2-3 times a week Caffeine use: No Caffeine amount and frequency: quit caffeine because of bladder Family History Family history of sleep disordered breathing: No Allergies and Home Medications Drug allergies reviewed: Yes (clindamycin) Home medication list reviewed: Yes Allergy and home medication list: Metoprolol Lisinopril HCTZ Coreg Bupropion Fluoxetine Gabapentin Review of Systems Cardiovascular: reports: high blood pressure Gastrointestinal: reports: difficulty swallowing (has restrictions in his throat, no GERD). denies: heartburn Urinary: reports: frequency Neurological: denies: headaches Psychiatric: reports: depression Ear/Nose/Throat: reports: nasal congestion, sinus problems, dry mouth/throat, tonsillectomy, wisdom teeth removed Musculoskeletal: reports: joint pain Immunologic: reports: other (sinus allergies) Physical Exam Blood Pressure: 155/96 Cuff size: long Heart Rate: 68 O2 Saturation: 96 Height: 5 ft 9 in Weight: 174 lb Body Mass Index: 25.7 BMI Classification: Overweight Neck circumference: 15.5 (inches) Nostrils: patent to airflow Turbinates: swollen (left nare) Septum: midline Mouth and throat: narrow oropharynx Soft palate: long Hard palate: normal Uvula visualization: 25% Mallampati Class III Tongue: normal in size Tonsils: absent bilaterally Neck: normal w/o lymphadenopathy or thyromegaly Heart: regular rate and rhythm Lungs: clear bilaterally Impression and Plan 1. Suspected Obstructive Sleep Apnea-Hypopnea Syndrome, as suggested by a history of loud and irregular snoring, observed cessation of breath while asleep, and ifrequent awakening during the night. I reviewed with the patient that a narrow oropharynx and obesity are common predisposing factors for obstructive sleep apnea-hypopnea syndrome. I recommend proceeding to polysomnography to confirm the diagnosis and to assess severity. If the patient has significant sleep disordered breathing, a manual CPAP titration study will also be performed to find the optimal treatment pressure. I informed the patient of what the sleep studies involve and after some discussion, obtained agreement to proceed. The pathophysiology of obstructive sleep apnea-hypopnea syndrome was discussed with the patient and health risks of cardiovascular and cerebrovascular disease if not treated. AAS brochure for obstructive sleep apnea-hypopnea syndrome given and reviewed. Risks of drowsy driving discussed in detail and patient advised to avoid long distance driving and to chute puller at the first sign of drowsiness. Patient agreed to plan. * Schedule polysomnography +- manual CPAP titration study and return in 1-2 weeks after the study to discuss result and initiate therapy. * Avoid long distance driving or driving when feeling sleepy. * Avoid alcohol, sedative and muscle relaxant around bedtime. * Attempt to lose weight. * Review instructions provided by trained office staff on how to prepare for the sleep study. * Return for follow-up after sleep study completed. Counseling Topics: Weight loss health impact Visit Type: In Office Time Spent with Patient (minutes): 34 Provider Statement: I spent 100% of the Face to Face Visit with the patient with greater than 50% spent counseling the patient and coordination of care.
== END 2020-11-30 08:41 | disposition home or self-care (01) ==
LOC: SC 08:40
PROVIDERS: ATTEND Nurse Practitioner Family
DX: R06.83 Snoring (principal); G47.8 Other sleep disorders; R06.81 Apnea, not elsewhere classified; E66.3 Overweight; Z68.25 Body mass index [BMI] 25.0-25.9, adult; I10 Essential (primary) hypertension
CPT/HCPCS: 99203; G0463; 99212

== ENCOUNTER 2020-12-15 09:58 | Outpatient (CLI) | payer MEDICARE | END 2020-12-15 09:59 | disposition home or self-care (01) | LOC: SC 09:58 | PROVIDERS: ATTEND Nurse Practitioner Family | DX: G47.33 Obstructive sleep apnea (adult) (pediatric) (principal); R09.02 Hypoxemia; E66.3 Overweight; Z68.25 Body mass index [BMI] 25.0-25.9, adult | CPT/HCPCS: G0399 ×2; 95806 ==

== ENCOUNTER 2020-12-22 13:40 | Outpatient (CLI) | payer MEDICARE ==
--- NOTE | 2020-12-22 13:40 | SLEEP CARE CONSULTATION ---
Information from patient questionnaire entered by Yue Dawson. I have reviewed and concur with the information entered by Yue Dawson. This document represents the service I personally performed and the decisions made by , Amelia Sheth ARNP. History of Present Illness Service Date and Time: 12/22/2020 1320 Initial [place] Sleepiness Scale score: 3 (in 2020) Current [place] Sleepiness Scale score: 5 Additional HPI information: TULIO CASTANEDA returns via Telehealth visit with spouse for follow up and results of the recently performed home sleep study. I explained the pathophysiology behind obstructive sleep apnea. We then spent quite a bit of time discussing different treatment options. For mild obstructive sleep apnea, surgery and oral appliance are alternatives to nasal CPAP therapy but in moderate or severe cases, nasal CPAP is the most effective and reliable treatment. Because apnea is primarily in supine position, then positional management therapy could be effective. Methods discussed such as positioning with pillows, using a T-shirt with tennis balls in the back, and shown commercial products that have a pillow format on back to prevent supine sleep. I reviewed the impact of weight changes on sleep apnea and strongly recommended losing weight. After some discussion, the patient opted to go with the nasal CPAP therapy. Nasal autoCPAP set at 4-15 cmH20 will be ordered with rationale explained. A manual titration study will be ordered if unable to find optimal pressure with office adjustments. I explained how CPAP machine works and what to expect when using the machine. Using CPAP every night in order to get used to it was emphasized. Patient advised to put CPAP mask on before getting into bed so as not to fall asleep without CPAP. To assist acclimation to CPAP use, it could also be used for a short time during day while reading or watching TV. The patient was instructed to call the CPAP supplier to discuss any mechanical problem that may occur. If the mask given is uncomfortable or is difficult to keep on through the night even with adjustment, contact the CPAP supplier as many will replace with another mask style if notified before 30 days. If snoring or perceives is not getting enough air or too much air from the machine, notify this office. Patient counseled not drink alcohol less than 4 hours before bedtime as it can increase snoring and apnea. Patient was cautioned about risks of drowsy driving until sleepiness symptoms resolve. Sleep Study - Results Type of Sleep Study: Home sleep study Prior sleep studies: No Polysomnography/Home Sleep Study results: Physician Impression: The quality of the study is good. The length of the study is adequate (> 240 minutes). Please also see the tabulated and graphic data. 1. Obstructive Sleep Apnea-Hypopnea (ICD-10 G47.33), severe, with an AHI of 56.0 /hr and jessica SaO2 of 79%. During the study, the patient had 479 apneas (476 obstructive, 0 central, 3 mixed) and 30 hypopneas. The longest episode lasted 68.0 seconds. The respiratory events occurred independently of body position (supine AHI was 55.9 and non-supine, 120.00). 2. Hypoxemia (ICD-10 R09.02), moderate, with the lowest oxygen saturation of 79 % and 65.4 minutes with SaO2 under 90%. Baseline oxygen saturation was normal (Average oxygen saturation was 92%). Physical Exam Vital signs obtained and entered by: Telehealth visit to reduce exposure during Covid pandemic Height: 5 ft 9 in Impression and Plan 1. Obstructive Sleep Apnea-Hypopnea Syndrome, severe, with lowest oxygen saturation of 79%. Obviously this is the cause of the patients symptoms of unrefreshed sleep, and excessive daytime sleepiness. Positive pressure therapy could benefit hypertension and depression. As mentioned above, the patient will be started on nasal autoCPAP therapy with pressure set at 4-15 cmH2O. A manual titration study will be completed if unable to find optimal treatment pressure with office adjustments. Compliance guidelines also reviewed. A copy of compliance guidelines will be given for reference at check out. * Nasal auto CPAP therapy, pressure at 4-15 cm H2O. * Attempt to lose weight. * Avoid alcohol consumption near bedtime. * The patient is again cautioned about driving until sleepiness completely resolves. * Return one month after CPAP obtained. I will assess response to therapy and compliance at that time. Visit Type: Telehealth Video Video Type: VSee Patient Location: Home Location of Provider: Office Patient agrees and consents to this telehealth visit type: Yes Patient agrees to have their insurance billed: Yes Time Spent with Patient (minutes): 18 Provider Statement: I spent 100% of the Telehealth Video Call with the patient with greater than 50% spent counseling the patient and coordination of care.
== END 2020-12-22 13:41 | disposition home or self-care (01) ==
LOC: SC 13:40
PROVIDERS: ATTEND Nurse Practitioner Family
DX: G47.33 Obstructive sleep apnea (adult) (pediatric) (principal)

== ENCOUNTER 2021-01-05 07:00 | Outpatient (CLI) | payer MEDICARE ==
--- NOTE | 2021-01-05 10:11 | XRAY Report ---
PROCEDURE: Hip w/Pelvis 1V LT INDICATIONS: LEFT HIP POST OP FILMS TECHNIQUE: AP pelvis with lateral view(s) of the left hip(s). COMPARISON: Left hip intraoperative images dated 07/31/2020 and left hip radiograph dated 07/30/2020. FINDINGS: Bones: Patient is status post prior internal fixation of patient's known intertrochanteric fracture w ith intramedullary marisela and femoral neck compression screw in place. No gross hardware loosening or fa ilure. Medially displaced lesser trochanteric fracture fragment is seen. No new fracture or dislocati on. No evidence of avascular necrosis of femoral head. No suspicious bony lesions. Soft tissues: The visualized bowel gas pattern is normal. No suspicious soft tissue calcifications. IMPRESSION: Anatomic left hip alignment. No gross hardware complication. No new fracture or dislocati on. No evidence of avascular necrosis of femoral head. Reviewed by: Efren Swain MD on 01/05/2021 10:10 AM PST Approved by: Efren Swain MD on 01/05/2021 10:10 AM PST Station ID: [id number]
== END 2021-01-05 23:59 | disposition home or self-care (01) ==
LOC: DI.N 07:00
PROVIDERS: ATTEND Physician Assistant
DX: S72.142G Displaced intertrochanteric fracture of left femur, subsequent encounter for closed fracture with delayed healing (principal)

== ENCOUNTER 2021-03-06 07:00 | Outpatient (CLI) | payer MEDICARE ==
--- NOTE | 2021-03-06 15:36 | XRAY Report ---
PROCEDURE: Hip w/Pelvis 1V LT INDICATIONS: DISPLACED INTERTROCHANTERIC FX OF L FEMUR TECHNIQUE: AP pelvis with lateral view(s) of the left hip(s). COMPARISON: X-ray pelvis and hip 01/05/2021. FINDINGS: Bones: Fracture fragments surrounding the region of the intertrochanteric fracture is again noted. Mi nimal interval sclerosis is noted within portions of the fracture lucencies. Alignment is stable. Int ramedullary marisela fixation is stable. Pelvic ring appears intact. No suspicious bony lesions. Soft tissues: The visualized bowel gas pattern is normal. No suspicious soft tissue calcifications. IMPRESSION: Stable alignment and less prominent appearance of fracture lucencies within the left fem oral fixation. Reviewed by: Shweta Campo MD on 03/06/2021 3:35 PM PDT Approved by: Shweta Campo MD on 03/06/2021 3:35 PM PDT Station ID: [id number]
== END 2021-03-06 23:59 | disposition home or self-care (01) ==
LOC: DI.N 07:00
PROVIDERS: ATTEND Physician Assistant
DX: S72.142D Displaced intertrochanteric fracture of left femur, subsequent encounter for closed fracture with routine healing (principal)

== ENCOUNTER 2021-09-12 15:59 | Emergency (ER) | payer MEDICARE ==
--- NOTE | 2021-09-12 16:25 | ED Physician Documentation ---
History of Present Illness - Stated complaint Stated Complaint: L LEG PX/SWELLING - Chief complaint Chief Complaint: Ext Problem - History obtained from History obtained from: Patient - Additonal information Additional information: Patient comes emergency department chief complaint of left lower extremity pain and swelling for the last few days. He states that it started with a painful spot on the dorsum of his left foot after gardening several days ago. He states he thought maybe he dropped something on his foot but does not really remember doing this. He is not a diabetic. The next day, he noticed that his left ankle was starting to swell and that the swelling spread up through his calf. He also noticed a little bit of reddish discoloration that has developed since. Patient denies fevers or chills. He states he always has body pain but has not noticed any new aches. No history of DVT or PE. No family history. Patient is not a smoker of tobacco, though he occasionally smokes marijuana. No other complaints at this time. Review of Systems Ten Systems: 10 systems reviewed and negative Constitutional: reports: Reviewed and negative Eyes: reports: Reviewed and negative Ears: reports: Reviewed and negative Nose: reports: Reviewed and negative Throat: reports: Reviewed and negative Cardiac: reports: Reviewed and negative Respiratory: reports: Reviewed and negative GI: reports: Reviewed and negative : reports: Reviewed and negative Skin: reports: Reviewed and negative Musculoskeletal: reports: Extremity pain, Extremity swelling Neurologic: reports: Reviewed and negative Psychiatric: reports: Reviewed and negative Endocrine: reports: Reviewed and negative Immunocompromised: reports: Reviewed and negative PD PAST MEDICAL HISTORY - Past Medical History Cardiovascular: Hypertension, High cholesterol Respiratory: None Neuro: None Endocrine/Autoimmune: None GI: GERD : Benign prostate hypertrophy Psych: Depression Musculoskeletal: Osteoarthritis, Other Derm: None - Past Surgical History Past Surgical History: No HEENT: Tonsil/Adenoidectomy, Other (Jaw surgery) - Present Medications Home Medications: Ambulatory Orders Medication Instructions Recorded Confirmed Fluoxetine HCl [Prozac] 40 mg PO DAILY 07/30/20 07/30/20 Gabapentin [Neurontin] 300 mg PO QID 07/30/20 07/30/20 Lisinopril [Zestril] 40 mg PO DAILY 07/30/20 07/30/20 Tamsulosin [Flomax] 0.4 mg PO DAILY 07/30/20 07/30/20 buPROPion HCL [Bupropion HCl] 75 mg PO BID 07/30/20 07/30/20 hydroCHLOROthiazide 12.5 mg PO DAILY 07/30/20 07/30/20 [Hydrochlorothiazide] Alendronate [Fosamax] 70 mg PO Q7D #4 tablet 08/03/20 Aspirin [Fany] 325 mg PO BIDWM #28 tablet 08/03/20 Docusate Sodium 250Mg Capsule 250 mg PO DAILY #14 capsule 08/03/20 [Colace 250Mg Capsule] HYDROcod/ACETAM 5/325 [[place] 5/325] 1 tab PO Q4HR PRN #20 tablet 08/03/20 carvediloL [Coreg] 6.25 mg PO BID #60 tablet 08/03/20 amLODIPine [Norvasc] 5 mg PO DAILY 15 Days #15 tablet 11/07/20 cephALEXin [Keflex] 500 mg PO Q6H #28 09/12/21 - Allergies Allergies/Adverse Reactions: Allergies Allergy/AdvReac Type Severity Reaction Status Date / Time clindamycin Allergy Unknown Verified 09/12/21 16:02 - Social History Does the pt smoke?: No Smoking Status: Never smoker Does the pt drink ETOH?: No Does the pt have substance abuse?: No - Immunizations Immunizations are current?: Yes - POLST Patient has POLST: No PD ED PE NORMAL - Vitals Vital signs reviewed: Yes - General General: Alert and oriented X 3, No acute distress, Well developed/nourished - HEENT HEENT: Atraumatic, PERRL, EOMI, Moist mucous membranes - Neck Neck: Supple, no meningeal sign - Cardiac Cardiac: RRR, No murmur, Strong equal pulses - Respiratory Respiratory: No respiratory distress, Clear bilaterally - Derm Derm: Warm and dry, No rash, Other (Very slight erythema of anterior tibial area and extending down to around ankle on the left. Moderate edema.) - Extremities Extremities: No deformity, Other (1+ pitting edema left lower extremity, extending from ankle to proximal lower leg.) - Neuro Neuro: Alert and oriented X 3, copy and print associate 2-12 intact, Normal speech - Psych Psych: Normal mood, Normal affect Results - Vitals Vitals: Vital Signs - 24 hr 09/12/21 16:02 Temperature 36.5 C Heart Rate 111 H Respiratory 18 Rate Blood Pressure 203/100 H O2 Saturation 94 Oxygen O2 Source Room air - Rads (name of study) US LLE Radiology: Prelim report reviewed, See rad report (Negative) PD MEDICAL DECISION MAKING - ED course Complexity details: reviewed results, re-evaluated patient, considered differential, d/w patient ED course: Patient was worked up with a an ultrasound of the left lower extremity. Although tachycardia was noted at triage, the patient had a normal heart rate on my exam. Ultrasound of the patient's left lower extremity was negative. He was started on Keflex for presumed early cellulitis. We have discussed home management symptoms, as well as usual indications for return. Departure - Departure Disposition: Home, Self Care Clinical Impression: Swelling of lower limb Cellulitis Qualifiers: Site of cellulitis: extremity Site of cellulitis of extremity: lower extremity Laterality: left Qualified Code(s): L03.116 - Cellulitis of left lower limb Condition: Stable Instructions: ED Infec Skin Cellulitis Prescriptions: cephALEXin [Keflex] 500 mg PO Q6H #28 Comments: Your ultrasound is negative for blood clot. Given the sore, swollen, slightly red patch on your foot, and then the developing redness on your leg, it is concerning for possible infection of the skin and soft tissue immediately underlying. You have been started on antibiotics for this. You may prop your foot up whenever you are sitting or laying down to help drain some the swelling. You may also use ice packs if needed. If you develop progression of symptoms despite a couple of days of the antibiotics, please seek further evaluation.
[2021-09-12] MEDS ORDERED: cephALEXin 250 MG CAPSULE PO STA (17:22)
--- NOTE | 2021-09-12 17:25 | Ultrasound Report ---
PROCEDURE: Duplex Ext Veins Left INDICATIONS: pain/swelling TECHNIQUE: Real-time imaging, as well as color and pulse Doppler interrogation, were performed of the lower extr emity deep veins from the inguinal ligament to the popliteal fossa. COMPARISON: None. FINDINGS: The deep veins are normally compressible, and free of intraluminal thrombus. Color and pu lse Doppler demonstrate normal phasic intraluminal flow. There is normal augmentation response to di stal compression maneuver. IMPRESSION: 1. No evidence of deep venous thrombosis in the left lower extremity. Reviewed by: Salazar De Guzman MD on 09/12/2021 5:24 PM PST Approved by: Salazar De Guzman MD on 09/12/2021 5:24 PM PST Station ID: [id number]
[2021-09-12 17:33] VITALS: BP 153/104
== END 2021-09-12 17:32 | disposition home or self-care (01) ==
LOC: ED 15:59
DX: L03.116 Cellulitis of left lower limb (principal)
CPT/HCPCS: 93971; 99282; 99284; A9270

== ENCOUNTER 2021-09-25 09:50 | Emergency (ER) | payer MEDICARE ==
--- NOTE | 2021-09-25 10:51 | XRAY Report ---
PROCEDURE: Foot 3 View LT INDICATIONS: Trauma, heavy object dropped on anterior foot over a month ago. TECHNIQUE: 3 views of the foot were acquired. COMPARISON: None. FINDINGS: BONES: No acute, displaced fracture or dislocation. Small plantar calcaneal enthesophyte. SOFT TISSUES: No focal abnormality. IMPRESSION: 1.No acute osseous abnormality. Reviewed by: Chaim Guillermo MD on 09/25/2021 10:49 AM [facility] Approved by: Chaim Guillermo MD on 09/25/2021 10:49 AM [facility] Station ID: [id number]
--- NOTE | 2021-09-25 12:08 | ED Physician Documentation ---
PD HPI LOWER EXT INJURY - Stated complaint Stated Complaint: L FOOT PX/SWELLING - Chief complaint Chief Complaint: Ext Problem - History obtained from History obtained from: Patient - Additional information Additional information: This is a 71-year-old with history of hypertension who had something fall on his foot about a month ago in the garden shed. He subsequently developed cellulitis of the foot and ankle and was on Keflex which was very helpful. He was ruled out for DVT at the time. Since stopping the Keflex the swelling is slowly coming back as well as the pain and redness. No fevers. Review of Systems Constitutional: denies: Fever, Chills Eyes: denies: Loss of vision, Decreased vision Ears: denies: Loss of hearing, Ear pain Nose: reports: Reviewed and negative Throat: reports: Reviewed and negative Cardiac: reports: Reviewed and negative Respiratory: reports: Reviewed and negative PD PAST MEDICAL HISTORY - Past Medical History Past Medical History: Yes Cardiovascular: Hypertension, High cholesterol Respiratory: None Neuro: None Endocrine/Autoimmune: None GI: GERD : Benign prostate hypertrophy Psych: Depression Musculoskeletal: Osteoarthritis, Other Derm: None - Past Surgical History Past Surgical History: No HEENT: Tonsil/Adenoidectomy, Other - Present Medications Home Medications: Ambulatory Orders Medication Instructions Recorded Confirmed Fluoxetine HCl [Prozac] 40 mg PO DAILY 07/30/20 07/30/20 Gabapentin [Neurontin] 300 mg PO QID 07/30/20 07/30/20 Lisinopril [Zestril] 40 mg PO DAILY 07/30/20 07/30/20 Tamsulosin [Flomax] 0.4 mg PO DAILY 07/30/20 07/30/20 buPROPion HCL [Bupropion HCl] 75 mg PO BID 07/30/20 07/30/20 hydroCHLOROthiazide 12.5 mg PO DAILY 07/30/20 07/30/20 [Hydrochlorothiazide] Alendronate [Fosamax] 70 mg PO Q7D #4 tablet 08/03/20 Aspirin [Fany] 325 mg PO BIDWM #28 tablet 08/03/20 Docusate Sodium 250Mg Capsule 250 mg PO DAILY #14 capsule 08/03/20 [Colace 250Mg Capsule] HYDROcod/ACETAM 5/325 [[place] 5/325] 1 tab PO Q4HR PRN #20 tablet 08/03/20 carvediloL [Coreg] 6.25 mg PO BID #60 tablet 08/03/20 amLODIPine [Norvasc] 5 mg PO DAILY 15 Days #15 tablet 11/07/20 cephALEXin [Keflex] 500 mg PO Q6H #28 09/12/21 cephALEXin [Keflex] 500 mg PO Q6H #40 cap 09/25/21 predniSONE [Deltasone] 20 mg PO [id number] #21 tab 09/25/21 - Allergies Allergies/Adverse Reactions: Allergies Allergy/AdvReac Type Severity Reaction Status Date / Time clindamycin Allergy Unknown Verified 09/25/21 10:04 - Social History Does the pt smoke?: No Smoking Status: Never smoker Does the pt drink ETOH?: No Does the pt have substance abuse?: No - Immunizations Immunizations are current?: Yes - POLST Patient has POLST: No PD ED PE NORMAL - Vitals Vital signs reviewed: Yes - General General: Alert and oriented X 3, No acute distress - Extremities Extremities: Other (There is area of cellulitis kind of between the third and fourth metatarsals dorsally of the foot and swelling up to the ankle. No calf tenderness. Negative Homans' sign. Excellent capillary refill in the left foot.) - Neuro Neuro: Alert and oriented X 3, Normal speech Results - Vitals Vitals: Vital Signs - 24 hr 09/25/21 10:00 Temperature 36.7 C Heart Rate 105 H Respiratory 16 Rate Blood Pressure 184/89 H O2 Saturation 97 Oxygen O2 Source Room air Departure - Departure Disposition: 01 Home, Self Care Clinical Impression: Cellulitis Condition: Good Record reviewed to determine appropriate education?: Yes Instructions: Cellulitis Dc Prescriptions: predniSONE [Deltasone] 20 mg PO [id number] #21 tab cephALEXin [Keflex] 500 mg PO Q6H #40 cap Comments: Prescription sent electronically to [facility] in [place]. As discussed it looks like you have an incompletely healed area of cellulitis in the left leg, between the longer course of Keflex and the steroids I think he should improve quickly. Return if worsening, if you fail to improve completely, or if you develop a fever.
[2021-09-25 12:11] VITALS: BP 174/115
== END 2021-09-25 12:11 | disposition home or self-care (01) ==
LOC: ED 09:50
DX: L03.116 Cellulitis of left lower limb (principal); I10 Essential (primary) hypertension; Z79.82 Long term (current) use of aspirin
CPT/HCPCS: 99283

== ENCOUNTER 2023-04-04 14:39 | Outpatient (CLI) | payer MEDICARE ==
[2023-04-04 14:51] LABS: BASOPHILS # (AUTO) 0.1 10^3/uL (0.0-0.1); BASOPHILS % (AUTO) 0.9 %; EOSINOPHILS # (AUTO) 0.3 10^3/uL (0.0-0.7); EOSINOPHILS % (AUTO) 2.9 %; HCT - HEMATOCRIT 45.7 % (42.0-52.0); HGB - HEMOGLOBIN 15.5 g/dL (14.0-18.0); LYMPHOCYTES # (AUTO) 2.1 10^3/uL (1.5-3.5); LYMPHOCYTES % (AUTO) 20.8 %; MEAN CORPUSCULAR HEMOGLOBIN 30.6 pg (27.0-31.0); MEAN CORPUSCULAR HGB CONC 33.9 g/dL (32.0-36.0); MEAN CORPUSCULAR VOLUME 90.1 fL (80.0-94.0); MEAN PLATELET VOLUME 10.1 fL (7.4-11.4); MONOCYTES % (AUTO) 9.7 %; NEUTROPHILS # (AUTO) 6.6 10^3/uL (1.5-6.6); NEUTROPHILS % (AUTO) 64.8 %; PLT - PLATELET COUNT 230 10^3/uL (130-450); RED BLOOD COUNT 5.07 10^6/uL (4.70-6.10); WHITE BLOOD COUNT 10.2 x10^3/uL (4.8-10.8)
[2023-04-04 15:08] LABS: ALBUMIN 4.3 g/dL (3.2-5.5); ALBUMIN/GLOBULIN RATIO 1.3 (1.0-2.2); ALKALINE PHOSPHATASE 42 IU/L (42-121); ALT ALANINE AMINOTRANSFERASE 31 IU/L (10-60); AST ASPARTATE AMINOTRANSFERASE 27 IU/L (10-42); BILIRUBIN,TOTAL 0.6 mg/dL (0.2-1.0); BUN - BLOOD UREA NITROGEN 19 mg/dL (6-20); CALCIUM 9.2 mg/dL (8.5-10.3); CARBON DIOXIDE - CO2 27 mmol/L (21-32); CHLORIDE 103 mmol/L (101-111); CHOL/HDL RATIO 5.2 (<5.0); CHOLESTEROL 294 mg/dL; GFR - MDRD 74 (>89); GLUCOSE 96 mg/dL (70-100); HDL CHOLESTEROL 57 mg/dL; LDL CHOLESTEROL,CALCULATED 185 mg/dL; LDL/HDL RATIO 3.2 (<3.6); POTASSIUM 3.8 mmol/L (3.5-5.0); SODIUM 137 mmol/L (135-145); TOTAL PROTEIN 7.5 g/dL (6.7-8.2); TRIGLYCERIDES 261 mg/dL; VLDL CHOLESTEROL 52 mg/dL
== END 2023-04-04 14:40 | disposition home or self-care (01) ==
LOC: LAB 14:39
PROVIDERS: ATTEND Physician Assistant
DX: I10 Essential (primary) hypertension (principal); E78.5 Hyperlipidemia, unspecified
CPT/HCPCS: 36415; 80053; 80061; 83721; 85025

== ENCOUNTER 2023-08-21 10:21 | Outpatient (CLI) | payer MEDICARE ==
--- NOTE | 2023-08-21 19:23 | XRAY Report ---
PROCEDURE: Hand 2 View BILAT INDICATIONS: BILATERAL PAIN OF JOINT OF HANDS TECHNIQUE: 2 view(s) of the hand(s) acquired. COMPARISON: None FINDINGS: Bones: No fractures or dislocations. No suspicious bony lesions. Soft tissues: No suspicious soft tissue calcifications. IMPRESSION: Unremarkable hand radiographs Reviewed by: Lawrence Mohan MD on 08/21/2023 6:22 PM [facility] Approved by: Lawrence Mohan MD on 08/21/2023 6:22 PM [facility] Station ID: [id number]
== END 2023-08-21 10:22 | disposition home or self-care (01) ==
LOC: DI 10:21
PROVIDERS: ATTEND Physician Assistant
DX: M25.541 Pain in joints of right hand (principal); M25.542 Pain in joints of left hand

== ENCOUNTER 2023-08-27 12:33 | Outpatient (CLI) | payer MEDICARE ==
--- NOTE | 2023-08-27 16:05 | XRAY Report ---
PROCEDURE: Lumbar Spine 2 View INDICATIONS: LOW BACK PAIN,CHRONIC TECHNIQUE: 3 views of the lumbar spine were acquired. COMPARISON: None. FINDINGS: Bones: 5 [id number] vertebrae are present. There is mild, approximately 5 mm of L2-L3 retrolis thesis. There is mild, approximately 6 mm of L5-S1 anterolisthesis. No vertebral body compression fra ctures. No suspicious bony lesions. Mild degenerative disc disease. The lumbar spine. Moderate L4-L5 and L5-S1 facet arthropathy. Mild L3-L4 facet arthropathy. Partially visualized left femur fixation hardware. Soft tissues: Overlying bowel gas pattern is normal. No suspicious soft tissue calcifications. IMPRESSION 1. Multilevel degenerative disc disease. 2. Multilevel facet arthropathy. 3. No fracture. No acute osseous lesion. If there is continued clinical concern for pathology, then M RI should be considered for further evaluation. Reviewed by: Adamaris Beal MD, PhD on 08/27/2023 4:03 PM PDT Approved by: Adamaris Beal MD, PhD on 08/27/2023 4:03 PM PDT Station ID: [id number]
== END 2023-08-27 12:34 | disposition home or self-care (01) ==
LOC: DI 12:33
PROVIDERS: ATTEND Physician Assistant
DX: M47.816 Spondylosis without myelopathy or radiculopathy, lumbar region (principal); M51.36 Other intervertebral disc degeneration, lumbar region; G89.29 Other chronic pain

== ENCOUNTER 2024-06-19 07:40 | Outpatient (CLI) | payer MEDICARE ==
[2024-06-19 07:53] LABS: BASOPHILS # (AUTO) 0.1 10^3/uL (0.0-0.1); BASOPHILS % (AUTO) 0.9 %; EOSINOPHILS # (AUTO) 0.3 10^3/uL (0.0-0.7); EOSINOPHILS % (AUTO) 3.5 %; HCT - HEMATOCRIT 48.4 % (42.0-52.0); HGB - HEMOGLOBIN 16.3 g/dL (14.0-18.0); LYMPHOCYTES # (AUTO) 1.8 10^3/uL (1.5-3.5); LYMPHOCYTES % (AUTO) 21.7 %; MEAN CORPUSCULAR HEMOGLOBIN 30.9 pg (27.0-31.0); MEAN CORPUSCULAR HGB CONC 33.7 g/dL (32.0-36.0); MEAN CORPUSCULAR VOLUME 91.7 fL (80.0-94.0); MEAN PLATELET VOLUME 9.7 fL (7.4-11.4); MONOCYTES # (AUTO) 0.7 10^3/uL (0.0-1.0); MONOCYTES % (AUTO) 8.4 %; NEUTROPHILS # (AUTO) 5.2 10^3/uL (1.5-6.6); NEUTROPHILS % (AUTO) 64.4 %; PLT - PLATELET COUNT 230 10^3/uL (130-450); RED BLOOD COUNT 5.28 10^6/uL (4.70-6.10); RED CELL DISTRIBUTION WIDTH 13.9 % (12.0-15.0); WHITE BLOOD COUNT 8.1 x10^3/uL (4.8-10.8)
[2024-06-19 08:05] LABS: ALBUMIN 4.4 g/dL (3.2-5.5); ALBUMIN/GLOBULIN RATIO 1.7 (1.0-2.2); ALKALINE PHOSPHATASE 33 IU/L (42-121); ALT ALANINE AMINOTRANSFERASE 24 IU/L (10-60); AST ASPARTATE AMINOTRANSFERASE 21 IU/L (10-42); BILIRUBIN,TOTAL 0.4 mg/dL (0.2-1.0); BUN - BLOOD UREA NITROGEN 21 mg/dL (6-20); CALCIUM 9.1 mg/dL (8.5-10.3); CARBON DIOXIDE - CO2 31 mmol/L (21-32); CHLORIDE 100 mmol/L (101-111); CHOL/HDL RATIO 4.7 (<5.0); CHOLESTEROL 271 mg/dL; GFR - MDRD 73 (>89); GLUCOSE 98 mg/dL (74-104); HDL CHOLESTEROL 58 mg/dL; LDL CHOLESTEROL,CALCULATED 167 mg/dL; LDL/HDL RATIO 2.9 (<3.6); POTASSIUM 3.9 mmol/L (3.5-4.5); SODIUM 136 mmol/L (135-145); TRIGLYCERIDES 230 mg/dL; VLDL CHOLESTEROL 46 mg/dL
[2024-06-19 12:12] LABS: RHEUMATOID FACTOR NEGATIVE (Negative)
== END 2024-06-19 07:41 | disposition home or self-care (01) ==
LOC: LAB 07:40
PROVIDERS: ATTEND Physician Assistant
DX: I10 Essential (primary) hypertension (principal); E78.5 Hyperlipidemia, unspecified; M25.541 Pain in joints of right hand; M54.50 Low back pain, unspecified; G89.29 Other chronic pain; M17.0 Bilateral primary osteoarthritis of knee
CPT/HCPCS: 36415; 80053; 80061; 83721; 85025; 86200; 86430